=== PATIENT | female | born 1940 | race Caucasian/White ===

== ENCOUNTER 2020-04-27 17:40 | Inpatient (IN) ==
[2020-04-27] MEDS ORDERED: cefTRIAXone 1 GM VIAL IV ONE (17:44)
[2020-04-27] MEDS ORDERED: 0.9 % SODIUM CHLORIDE 1,000 ML IV ONE (17:44)
[2020-04-27 19:10] LABS: ABG Methemoglobin 0.3 % (0.4-1.5); Total Hemoglobin 11.2 gm/dL (12.0-15.0); VBG Base Excess 5.4 (-2.0-2.0); VBG HCO3 27.7 mmol/L (24.0-28.0); VBG Oxygen Saturation 89.7 % (40.0-70.0); VBG PCO2 32.5 mmHg (41.0-51.0); VBG PH 7.55 U (7.32-7.42); VBG PO2 91 mmHg (25-40); VBG Total CO2 28.7 mmol/L (25.0-29.0)
[2020-04-27 19:11] LABS: Basophils # (Auto) 0.05 K/mcL (0.00-0.30); Basophils % (Auto) 0.4 % (0.0-2.0); Eosinophils # (Auto) 0.42 K/mcL (0.00-0.70); Eosinophils % (Auto) 3.7 % (0.0-7.0); Granulocytes % (Auto) 68.3 % (38.0-78.0); Hematocrit 34.6 % (34.1-44.9); Hemoglobin 11.6 g/dL (11.2-15.7); Lymphocytes # (Auto) 2.16 K/mcL (1.50-4.80); Lymphocytes % (Auto) 19.3 % (15.5-49.0); Mean Cell Volume 90.6 fL (80.0-100.0); Mean Corpuscular HGB Conc 33.5 g/dL (31.0-36.0); Mean Platelet Volume 10.9 fL (7.4-10.4); Monocytes # (Auto) 0.93 K/mcL (0.10-0.90); Monocytes % (Auto) 8.3 % (1.0-12.0); Platelet Count 270 K/mcL (140-440); RBC 3.82 M/mcL (3.59-5.38); Red Cell Distribution Width 12.8 % (11.5-14.5); WBC 11.2 K/mcL (4.50-11.00)
[2020-04-27 19:50] LABS: ALT/SGPT 15 U/l (0-40); AST/SGOT 19 U/l (0-37); Albumin 3.8 gm/dL (3.2-5.2); Albumin/Globulin Ratio 1.5 (1.0-2.3); Alkaline Phosphatase 66 U/L (39-117); Bilirubin,Total 0.4 mg/dL (0.0-1.0); Calcium 8.5 mg/dl (8.6-10.4); Carbon Dioxide 24 mmol/L (22-30); Globulin 2.6 gm/dL (2.2-3.7); Glomerular Filtration Rate 36; Glucose 132 mg/dL (70-105)
[2020-04-27 19:54] LABS: Blood Urea Nitrogen 48 mg/dl (8-23); Chloride 92 mmol/L (96-108)
[2020-04-27] MEDS ORDERED: ONDANSETRON 4 MG/2 ML VIAL IV ONE (19:54)
[2020-04-27] MEDS ORDERED: POTASSIUM CHLORIDE 20 MEQ TABLET PO ONE (19:54)
[2020-04-27 20:00] LABS: Procalcitonin 0.09 ng/mL (<0.10)
--- NOTE | 2020-04-27 21:06 | Emergency Department Note ---
HPI General Chief complaint: Shortness of Breath/Dyspnea Stated complaint: shortness of breath Time Seen by Provider: 04/27/20 17:44 Source: patient Mode of arrival: ambulatory Limitations: no limitations History of Present Illness HPI Narrative: Narrative: 80-year-old patient presented with a history of symptoms consistent with upper respiratory infection that began 3 days ago. Associated symptoms include cough also reporting shortness of breath and fever. Specific risk factors that I considered in this patient's case were hypertension, diabetes, pre-existing cardiovascular disease, and pre-existing pulmonary disease-patient does have diabetes history of HI in the past. Patient also reports concern for fever dry cough. Symptoms are currently reported as mild to moderate in severity and intermittent in duration. Is exacerbated with coughing/not sleeping well. It is alleviated by rest. Patient has not been seen for this recently. Patient has had current immunizations. Patient denies any sore throat, neck pain, chest pain, abdominal pain, back pain, numbness or tingling in the extremities, skin rash, chills, vomiting, or diarrhea no other pain or complaints at this time. Patient reports they do not have sick contacts. Patient reports they have not been tested for COVID19. Related Data Home Medications Medication Instructions Recorded Confirmed acetaminophen 325 mg tablet 650 mg PO Q4H PRN tab 10/12/18 04/13/20 telmisartan 80 mg tablet 80 mg PO QDAY 02/21/20 04/13/20 memantine 10 mg tablet 10 mg PO QPM 04/15/20 doxazosin 1 mg PO QHS 04/27/20 04/27/20 Previous Rx's Medication Instructions Recorded Diabetic Foot Care #365 day 12/04/15 insulin syringe,safetyneedle 1 mL #500 each 01/23/18 30 gauge x /" nitroglycerin 0.4 mg sublingual 0.4 mg SUBLINGUAL Q5-15M PRN #30 05/14/18 tablet tab atorvastatin 80 mg tablet 80 mg PO QDAY #90 tab 06/24/19 polysaccharide iron complex 150 mg 150 mg PO .qod #20 cap 06/24/19 iron capsule carvedilol 12.5 mg tablet 12.5 mg PO BID #180 tab 07/31/19 insulin degludec 100 unit/mL (3 70 unit SUB-Q QDAY 90 Days #75 ml 08/19/19 mL) subcutaneous pen amlodipine 5 mg tablet 5 mg PO BID #60 tab 11/25/19 polyethylene glycol 3350 17 17 g PO QDAY PRN #510 g 11/25/19 gram/dose oral powder levothyroxine 125 mcg tablet 125 mcg PO QDAY #90 tab 12/11/19 furosemide 20 mg tablet 40 mg PO BID #180 tab 01/20/20 potassium chloride 20 mEq 20 meq PO BID #14 tab 03/09/20 tablet,extended release isosorbide mononitrate 120 mg 60 mg PO QDAY #45 tab 03/20/20 tablet,extended release 24 hr chlorthalidone 25 mg tablet 12.5 mg PO QDAY #30 tab 04/06/20 apixaban 2.5 mg tablet 2.5 mg PO BID #90 tab 04/13/20 fenofibrate 54 mg tablet 54 mg PO QDAY #90 tab 04/15/20 insulin aspart U-100 100 unit/mL See Rx Instructions SUB-Q TID #90 04/20/20 subcutaneous solution ml Allergies Allergy/AdvReac Type Severity Reaction Status Date / Time hydrocodone [HYDROCODONE] Allergy Intermediate VOMITING Verified 04/17/20 02:07 acetaminophen [From Vicodin] Allergy Unknown Unknown Verified 04/17/20 02:07 clemastine Allergy Unknown Unknown Verified 04/17/20 02:07 hydromorphone [From Dilaudid] Allergy Unknown Unknown Verified 04/17/20 02:07 phenylpropanolamine Allergy Unknown Unknown Verified 04/17/20 02:07 atorvastatin [From Lipitor] Allergy Unknown Verified 04/17/20 02:07 morphine [MORPHINE] AdvReac Severe VIOLENT Verified 04/17/20 02:07 VOMITING nitroglycerin [NITROGLYCERIN] AdvReac Intermediate VIOLENT Verified 04/17/20 02:07 HEADACHES carbamazepine [From TEGRETOL] AdvReac Mild NAUSEA/LIGH Verified 04/17/20 02:07 THEADED meperidine [From DEMEROL] AdvReac Mild NAUSEA/LIGH Verified 04/17/20 02:07 THEADED metformin [From GLUCOPHAGE] AdvReac Mild UPSET Verified 04/17/20 02:07 STOMACH nifedipine [From PROCARDIA] AdvReac Mild UNKNOWN Verified 04/17/20 02:07 ezetimibe [From VYTORIN] AdvReac Unknown UNKNOWN Verified 04/17/20 02:07 metoprolol [From TOPROL XL] AdvReac Unknown UNKNOWN Verified 04/17/20 02:07 simvastatin [From VYTORIN] AdvReac Unknown UNKNOWN Verified 04/17/20 02:07 Tamoxifen [TAMOXIFEN] AdvReac Unknown UNKNOWN Verified 04/17/20 02:07 ezetimibe Allergy Unknown Unknown Uncoded 04/13/20 10:44 hydromorphone Allergy Unknown Unknown Uncoded 04/13/20 10:44 meperidine Allergy Unknown Unknown Uncoded 04/13/20 10:44 nifedipine Allergy Unknown Unknown Uncoded 04/13/20 10:44 simvastatin Allergy Unknown Unknown Uncoded 04/13/20 10:44 Tavist-D Allergy Unknown Unknown Uncoded 04/13/20 10:44 Review of Systems ROS ROS Narrative: Narrative: All systems ED: reviewed and negative except as stated. 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/antiplatelets (Chronic) Chest pain in adult (Acute) LBBB (left bundle branch block) (Acute) Paroxysmal atrial fibrillation (Acute) Hypokalemia (Acute) Diabetes mellitus, type II (Chronic) Renal failure, chronic (Chronic) Coronary artery disease (Chronic) Ischemic heart disease, chronic (Chronic) Cardiomegaly (Chronic) Carotid artery stenosis (Chronic) Peripheral vascular disease (Chronic) Renal artery stenosis (Chronic) Peripheral neuropathy (Chronic) Depression (Chronic) Chronic constipation (Chronic) Encounter for long-term (current) use of high-risk medication (Chronic) Essential hypertension (Chronic) Secondary hyperparathyroidism of renal origin (Chronic) Dementia (Chronic) Mild cognitive impairment (Chronic) Poor short term memory (Chronic ~12/19/18) ESR raised (Chronic) Polyarthralgia (Chronic) Carotid bruit (Chronic ~03/06/19) Migraine (Chronic) Mixed hyperlipidemia (Chronic) Compression fracture (Chronic) Osteoporosis (Chronic) Constipation (Chronic) Primary osteoarthritis, right hand (Chronic) Urinary incontinence (Chronic) Colon polyps (Chronic) Toxic multinodular goiter w/o crisis (Chronic) Headache (Chronic) Hypothyroidism (Chronic) Low back pain (Chronic) Degenerative arthritis (Chronic) Chronic tophaceous gout (Chronic) Medical History (Updated 04/27/20 @ 21:06 by Higinio Fregoso MD) Abnormal Pap smear of vagina (Resolved) Hx of distant atypical pap; worked up to resolution including endometrial biopsy; Ultrasound in 2006 revealed simple ovarian cyst; abdominopelvic CT 10/2011 Anemia (Resolved) Cardiomegaly (Chronic) 09/17/14 Dr Santana Carotid artery stenosis (Chronic) Carotid bruit (Chronic ~03/06/19) Cellulitis (Resolved) Cervicalgia (Resolved) Chest pain (Inactive) Recurrent; recathed with stable grafts in 2001; stabel cardiolithe in 2003; recathed 02/2005, which was stable. She had a cardiolite plus recath and echo 05/2008, which showed some mild progression of her disease and she was relegated to medical management. Presented with recurrent chest pains 06/2012, recathed and her grafts were stable at that point. Follow up visits with Dr Martin. Chest pain (Resolved) Chronic constipation (Chronic) Chronic tophaceous gout (Chronic) Colon polyps (Chronic) Colonoscopy with past hx of adenomatous polyps, updated in 12/2011 showing hyperplastic polyp. On [address] Reed. Compression fracture (Chronic) L3 MRI 06/2016--vertebro[plasty Constipation (Chronic) Coronary artery disease (Chronic) HX iwth coronary bypass grafting, posterior descending and circumflex, inframammary implant to the left anterior descending originally in 1995. Had transient atrial fibrillation postoperatively, which resolved Degenerative arthritis (Chronic) Dementia (Chronic) Depression (Chronic) Diabetes mellitus, type II (Chronic) Insulin dependent. Previously had been in oragl agent regimen combined with Lantus; sugars were poorly controlled and since about 2010 she has been on a full regimen of NPH. Encounter for long-term (current) use of high-risk medication (Chronic) ESR raised (Chronic) Essential hypertension (Chronic) Headache (Chronic) Chronic perobital/occipital; extensive workup, previous trial of Topamax; last imaging 10/2011 essentially normal. Hypoglycemia (Resolved) Hypothyroidism (Chronic) On replacements; no current goiter or nodules. 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 08/20 compression fx with negatie biopsy; multi-level vertebroplasty through pain clinic 06/19/2011 Mammographic microcalcification (Inactive) breast biopsy 2002 with short sequence of Tamoxifen for atypia aborted because of headache; sequential mammograms sable. Memory loss (Inactive) (10/27/2014 Dr Martin) Due to medication overdose Migraine (Chronic) Mild cognitive impairment (Chronic) Mixed hyperlipidemia (Chronic) Myocardial infarction acute (Resolved) 10/27/2014 Dr Martin Myoclonus (Inactive) Hx of nocturnal; had a consult with Dr Renzo Ortiz and a normal sleep study in 2001. Neuralgia (Inactive) past hx of facial with current headaches. Osteopenia (Inactive) by bone density; updated 08/2011 with T-score at spine -0.6 and hip -1.5. Stable Vitamin D level in 2008 Osteoporosis (Chronic) dexa 07/2016 Ovarian cyst (Inactive) Pelvic US 08/2011 showing benign left 2 cm ovarian cyst; abdominopelvic CT essentially normal 10/2011 Pain in right finger(s) (Resolved) Peripheral neuropathy (Chronic) Peripheral vascular disease (Chronic) Polyarthralgia (Chronic) Poor short term memory (Chronic ~12/19/18) Primary osteoarthritis, right hand (Chronic) Renal artery stenosis (Chronic) Renal failure, chronic (Chronic) MILD Secondary hyperparathyroidism of renal origin (Chronic) Toxic multinodular goiter w/o crisis (Chronic) 1963*S/P thyroidectomy in distant past Urinary incontinence (Chronic) Had a Stamey procedure in 1987; little benefit. She does not wish to work up further at this point Surgical History History of bladder surgery (Inactive) 1987*STAMEY technique History of bone marrow biopsy (Inactive) Negative History of bone marrow biopsy (Chronic) Negative History of breast biopsy (Inactive) 203 History of breast biopsy (Chronic ~10/09/02) History of colonoscopy (Inactive) 2000--Adenomatous polyp. 07/2006--Adenomatous polyp. 12/21/2011-2 small hyperplastic polyps. 5 year sequencing. History of colonoscopy (Chronic 12/21/11) History of coronary artery stent placement (Chronic 11/06/17) Drug-eluting coronary stent; Coronary PTCA single artery History of esophagogastroduodenoscopy (Inactive) 1999 NORMAL History of esophagogastroduodenoscopy (EGD) (Chronic ~10/09/99) History of heart surgery (Chronic 10/17/17) Coronary arteriography with saphenous vein graft History of left heart catheterization (Inactive) History of lumbar discectomy (Chronic ~10/09/96) 1987 History of shoulder surgery (Chronic) Right fracture and repair History of thyroidectomy (Chronic) partial History of total knee arthroplasty (Chronic) 02/2011 Right History of vertebroplasty (Chronic) 2010 X2 Hx of CABG (Chronic) 1995 x5 Family History Sister Malignant neoplasm of breast Family history of coronary artery disease 3 years younger Peripheral Vascular Disease Social History Smoking Status: Never smoker Alcohol Intake Frequency: holiday/special occasion only Substance Use: does not use Exam Narrative Narrative: Narrative: Patient is noted to be hypoxic on presentation sats in the 80s given 2 L of oxygen by nasal cannula with improvement into the high to mid 90s General: Alert, interactive, appropriate Head: Atraumatic, normocephalic Eyes: Extraocular movements intact, sclera anicteric, no conjunctival injection Ears: Pinnae normal, no discharge Mouth: Oral mucosa moist, no acute swelling or evidence of infection Nares: No nasal discharge, patent bilaterally Neck: Trachea midline, full range of motion Chest: Symmetrical chest wall rise, breathing normally; nonlabored respirations Cardiovascular: Patient with excellent perfusion to the extremities; without tachycardia/bradycardia Skin: Patient without area of erythema, patient is without rash, no ascending ly mphangitis or lymphadenopathy Extremities: Full range of motion joints, no obvious deformities Neuro: Alert, oriented x3, cranial nerves II through XII grossly intact, patient without lateralizing findings such as weakness, or abnormal reflexes Psychiatric: Normal affect, normal mood General Limitations: no limitations Course Vital Signs Vital signs: Vital Signs Temperature 100 F H 04/27/20 17:41 Pulse Rate 76 04/27/20 17:41 Respiratory Rate 20 04/27/20 17:41 Blood Pressure 148/77 04/27/20 17:41 Pulse Oximetry (%) 91 04/27/20 17:41 Temperature 100 F H 04/27/20 17:41 Pulse Rate 65 04/27/20 20:45 Respiratory Rate 20 04/27/20 17:41 Blood Pressure 141/49 04/27/20 20:32 Pulse Oximetry (%) 97 04/27/20 20:45 MDM MDM Narrative Medical decision making narrative: Narrative: This patient is presenting with symptoms and findings consistent with pneumonia and possibility of COVID. Patient currently requiring 2 L oxygen by nasal cannula to maintain saturations. They are not immunocompromised. They have no signs of meningitis on exam. The differential diagnosis also included COVID19. Patient with abnormal chest x-ray possible left lower lobe infiltrate. Given oxygen requirement as well as elevated white blood cell count and concerning history will test for COVID admit for pneumonia. Patient does have elevated lactic acid as well as BUN and creatinine and white blood cell count. Discussed case with Dr. Silverio and the consensus medical opinion is to omit the patient. Lab Data Result diagrams: 04/27/20 18:08 04/27/20 18:08 Labs: Lab Results 04/27/20 04/27/20 04/27/20 Range/Units 18:05 18:08 18:08 WBC 11.2 H (4.50-11.00) K/mcL RBC 3.82 (3.59-5.38) M/mcL Hgb 11.6 (11.2-15.7) g/dL Hct 34.6 (34.1-44.9) % MCV 90.6 (80.0-100.0) fL MCH 30.4 (26.0-34.0) pg MCHC 33.5 (31.0-36.0) g/dL RDW 12.8 (11.5-14.5) % Plt Count 270 (140-440) K/mcL MPV 10.9 H (7.4-10.4) fL Gran % 68.3 (38.0-78.0) % Lymph % (Auto) 19.3 (15.5-49.0) % Tyrrell % (Auto) 8.3 (1.0-12.0) % Eos % (Auto) 3.7 (0.0-7.0) % Baso % (Auto) 0.4 (0.0-2.0) % Gran # 7.65 (1.80-8.00) K/mcL Lymph # (Auto) 2.16 (1.50-4.80) K/mcL Tyrrell # (Auto) 0.93 H (0.10-0.90) K/mcL Eos # (Auto) 0.42 (0.00-0.70) K/mcL Baso # (Auto) 0.05 (0.00-0.30) K/mcL Band Neutrophils % Not Reportable ABG Methemoglobin (0.4-1.5) % VBG pH (7.32-7.42) U VBG pCO2 (41.0-51.0) mmHg VBG pO2 (25-40) mmHg VBG HCO3 (24.0-28.0) mmol/L VBG Total CO2 (25.0-29.0) mmol/L VBG O2 Saturation (40.0-70.0) % VBG Base Excess (-2.0-2.0) VBG Lactic Acid (0.5-2.0) mmol/L Carboxyhemoglobin (0.0-1.5) % THgb Total Hemoglobin (12.0-15.0) gm/dL O2 Delivery Level Sodium 136 (133-145) mmol/L Potassium 2.3 L* (3.3-5.1) mmol/L Chloride 92 L (96-108) mmol/L Carbon Dioxide 24 (22-30) mmol/L Anion Gap 20.0 H (8-16) BUN 48 H (8-23) mg/dl Creatinine 1.4 H (0.6-1.1) mg/dl GFR Calculation 36 Glucose 132 H (70-105) mg/dL Calcium 8.5 L (8.6-10.4) mg/dl Total Bilirubin 0.4 (0.0-1.0) mg/dL AST 19 (0-37) U/l ALT 15 (0-40) U/l Alkaline Phosphatase 66 (39-117) U/L Total Protein 6.4 (5.9-8.4) gm/dL Albumin 3.8 (3.2-5.2) gm/dL Globulin 2.6 (2.2-3.7) gm/dL Albumin/Globulin Ratio 1.5 (1.0-2.3) Procalcitonin (<0.10) ng/mL 04/27/20 04/27/20 04/27/20 Range/Units 18:08 18:08 18:08 WBC (4.50-11.00) K/mcL RBC (3.59-5.38) M/mcL Hgb (11.2-15.7) g/dL Hct (34.1-44.9) % MCV (80.0-100.0) fL MCH (26.0-34.0) pg MCHC (31.0-36.0) g/dL RDW (11.5-14.5) % Plt Count (140-440) K/mcL MPV (7.4-10.4) fL Gran % (38.0-78.0) % Lymph % (Auto) (15.5-49.0) % Tyrrell % (Auto) (1.0-12.0) % Eos % (Auto) (0.0-7.0) % Baso % (Auto) (0.0-2.0) % Gran # (1.80-8.00) K/mcL Lymph # (Auto) (1.50-4.80) K/mcL Tyrrell # (Auto) (0.10-0.90) K/mcL Eos # (Auto) (0.00-0.70) K/mcL Baso # (Auto) (0.00-0.30) K/mcL Band Neutrophils % ABG Methemoglobin 0.3 L (0.4-1.5) % VBG pH 7.55 H (7.32-7.42) U VBG pCO2 32.5 L (41.0-51.0) mmHg VBG pO2 91 H (25-40) mmHg VBG HCO3 27.7 (24.0-28.0) mmol/L VBG Total CO2 28.7 (25.0-29.0) mmol/L VBG O2 Saturation 89.7 H (40.0-70.0) % VBG Base Excess 5.4 H (-2.0-2.0) VBG Lactic Acid 2.3 H (0.5-2.0) mmol/L Carboxyhemoglobin 7.5 H (0.0-1.5) % THgb Total Hemoglobin 11.2 L (12.0-15.0) gm/dL O2 Delivery Level Not Reportable Sodium (133-145) mmol/L Potassium (3.3-5.1) mmol/L Chloride (96-108) mmol/L Carbon Dioxide (22-30) mmol/L Anion Gap (8-16) BUN (8-23) mg/dl Creatinine (0.6-1.1) mg/dl GFR Calculation Glucose (70-105) mg/dL Calcium (8.6-10.4) mg/dl Total Bilirubin (0.0-1.0) mg/dL AST (0-37) U/l ALT (0-40) U/l Alkaline Phosphatase (39-117) U/L Total Protein (5.9-8.4) gm/dL Albumin (3.2-5.2) gm/dL Globulin (2.2-3.7) gm/dL Albumin/Globulin Ratio (1.0-2.3) Procalcitonin 0.09 (<0.10) ng/mL Discharge Plan Patient/Caregiver Discharge Instructions Pt seen by FISH FRYER/PA only: No Clinical Impression: Acute respiratory failure with hypoxia Pneumonia Qualifiers: Pneumonia type: due to unspecified organism Laterality: left Lung location: lower lobe of lung Qualified Code(s): J18.9 - Pneumonia, unspecified organism Instructions: Community Acquired Pneumonia (ED) Patient Disposition: Xfer As Inpt ([facility]) Follow up with: Min Diaz DO [Primary Care Provider] - Prescriptions: No Action (DME) insulin syringe,safetyneedle 1 mL 30 gauge x 5/16" syringe See Dose Instructions .ROUTE .MEDSUPPLY Qty: 500 RF: 3 atorvastatin 80 mg tablet 80 mg PO QDAY Qty: 90 RF: 3 polysaccharide iron complex 150 mg iron capsule 150 mg PO .qod Qty: 20 RF: 3 carvedilol 12.5 mg tablet 12.5 mg PO BID Qty: 180 RF: 3 Tresiba FlexTouch U-100 100 unit/mL (3 mL) insulin pen 70 unit SUB-Q QDAY 90 Days Qty: 75 RF: 3 amlodipine 5 mg tablet 5 mg PO BID Qty: 60 RF: 11 levothyroxine [Synthroid] 125 mcg tablet 125 mcg PO QDAY Qty: 90 RF: 1 furosemide 20 mg tablet 40 mg PO BID Qty: 180 RF: 3 potassium chloride 20 mEq tablet extended release 20 meq PO BID Qty: 14 RF: 0 isosorbide mononitrate 120 mg tablet extended release 24 hr 60 mg PO QDAY Qty: 45 RF: 1 chlorthalidone 25 mg tablet 12.5 mg PO QDAY Qty: 30 RF: 3 fenofibrate 54 mg tablet 54 mg PO QDAY Qty: 90 RF: 1 memantine 10 mg tablet 10 mg PO QPM RF: 0 insulin aspart U-100 [Novolog U-100 Insulin aspart] 100 unit/mL solution See Rx Instructions SUB-Q TID Qty: 90 RF: 4 nitroglycerin 0.4 mg tablet, sublingual 0.4 mg SUBLINGUAL Q5-15M PRN (Reason: chest pain) Qty: 30 RF: 0 Eliquis 2.5 mg tablet 2.5 mg PO BID Qty: 90 RF: 3 polyethylene glycol 3350 [Miralax] 17 gram/dose powder 17 g PO QDAY PRN (Reason: constipation) Qty: 510 RF: 3 (DME) Diabetic Foot Care Qty: 365 RF: 0 acetaminophen 325 mg tablet 650 mg PO Q4H PRN (Reason: Pain) RF: 0 telmisartan 80 mg tablet 80 mg PO QDAY RF: 0 doxazosin 1 mg Tablet 1 mg PO QHS RF: 0
--- NOTE | 2020-04-27 21:24 | Internal Med History&Physical ---
HPI History of Present Illness Patient information: Note initiated : 04/27/20 at 9:14 pm Service Date, if different from initiated Date: [] Patient: Kristin Palmer a 80 y/o F admitted on for shortness of breath. Chief Complaint: [] History of present illness: Ms. Palmer is a 80 year old F Who presents the ED with shortness of breath and dry cough that started this morning. She does not wear oxygen at home and her oxygen was 86% in triage on room air. Denies nausea vomiting fevers or chills or body aches. History is obtained from patient as well as patient's as she has poor memory. Sounds like she has had shortness of breath for at least 6 months. However in the past day or so it is been worse and she developed a dry cough. She denies any recent travel or sick contacts. She thinks she is gained 4 pounds past week or so. She has chronic lower extremity edema and does not feel like it is changed. Follows with director corporate communications for coronary artery disease last saw her director corporate communications this spring with no changes in medication. She has a chronic left bundle branch block. Follows with a facsimile machine operator. She denies orthopnea or dysphagia. Nothing makes her coughing and shortness of breath worse or better. In the ED she was found to have a borderline white blood cell count, procalcitonin was okay and lactate was mildly elevated. Potassium was low. Chest x-ray with infiltrate right side with some cephalization. Review of Systems: Pertinent positives as above plus headache. Denies fever/chills/nausea/vomiting/chest or abdominal pain/diarrhea. Remaining 10 point review of system reviewed negative. [facility] Medical History (Updated 04/27/20 @ 21:06 by Higinio Fregoso MD) Abnormal Pap smear of vagina (Resolved) Hx of distant atypical pap; worked up to resolution including endometrial biopsy; Ultrasound in 2006 revealed simple ovarian cyst; abdominopelvic CT 10/2011 Anemia (Resolved) Cardiomegaly (Chronic) 09/17/14 Dr Santana Carotid artery stenosis (Chronic) Carotid bruit (Chronic ~03/06/19) Cellulitis (Resolved) Cervicalgia (Resolved) Chest pain (Inactive) Recurrent; recathed with stable grafts in 2001; stabel cardiolithe in 2003; recathed 02/2005, which was stable. She had a cardiolite plus recath and echo 05/2008, which showed some mild progression of her disease and she was relegated to medical management. Presented with recurrent chest pains 06/2012, recathed and her grafts were stable at that point. Follow up visits with Dr Martin. Chest pain (Resolved) Chronic constipation (Chronic) Chronic tophaceous gout (Chronic) Colon polyps (Chronic) Colonoscopy with past hx of adenomatous polyps, updated in 12/2011 showing hyperplastic polyp. On [address] Reed. Compression fracture (Chronic) L3 MRI 06/2016--vertebro[plasty Constipation (Chronic) Coronary artery disease (Chronic) HX iwth coronary bypass grafting, posterior descending and circumflex, inframammary implant to the left anterior descending originally in 1995. Had transient atrial fibrillation postoperatively, which resolved Degenerative arthritis (Chronic) Dementia (Chronic) Depression (Chronic) Diabetes mellitus, type II (Chronic) Insulin dependent. Previously had been in oragl agent regimen combined with Lantus; sugars were poorly controlled and since about 2010 she has been on a full regimen of NPH. Encounter for long-term (current) use of high-risk medication (Chronic) ESR raised (Chronic) Essential hypertension (Chronic) Headache (Chronic) Chronic perobital/occipital; extensive workup, previous trial of Topamax; last imaging 10/2011 essentially normal. Hypoglycemia (Resolved) Hypothyroidism (Chronic) On replacements; no current goiter or nodules. 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 Office visit with Dr Martin 07/2012, clinically stable on medical management skilled nursing (current) use of antithrombotics/antiplatelets (Chronic) Clopidogrel Low back pain (Chronic) past hx of lumbar surgery with increasing low back pain. 08/20 compression fx with negatie biopsy; multi-level vertebroplasty through pain clinic 06/19/2011 Mammographic microcalcification (Inactive) breast biopsy 2002 with short sequence of Tamoxifen for atypia aborted because of headache; sequential mammograms sable. Memory loss (Inactive) (10/27/2014 Dr Martin) Due to medication overdose Migraine (Chronic) Mild cognitive impairment (Chronic) Mixed hyperlipidemia (Chronic) Myocardial infarction acute (Resolved) 10/27/2014 Dr Martin Myoclonus (Inactive) Hx of nocturnal; had a consult with Dr Renzo Ortiz and a normal sleep study in 2001. Neuralgia (Inactive) past hx of facial with current headaches. Osteopenia (Inactive) by bone density; updated 08/2011 with T-score at spine -0.6 and hip -1.5. Stable Vitamin D level in 2008 Osteoporosis (Chronic) dexa 07/2016 Ovarian cyst (Inactive) Pelvic US 08/2011 showing benign left 2 cm ovarian cyst; abdominopelvic CT essentially normal 10/2011 Pain in right finger(s) (Resolved) Peripheral neuropathy (Chronic) Peripheral vascular disease (Chronic) Polyarthralgia (Chronic) Poor short term memory (Chronic ~12/19/18) Primary osteoarthritis, right hand (Chronic) Renal artery stenosis (Chronic) Renal failure, chronic (Chronic) MILD Secondary hyperparathyroidism of renal origin (Chronic) Toxic multinodular goiter w/o crisis (Chronic) 1963*S/P thyroidectomy in distant past Urinary incontinence (Chronic) Had a Stamey procedure in 1987; little benefit. She does not wish to work up further at this point Surgical History History of bladder surgery (Inactive) 1987*STAMEY technique History of bone marrow biopsy (Inactive) Negative History of bone marrow biopsy (Chronic) Negative History of breast biopsy (Inactive) 203 History of breast biopsy (Chronic ~10/09/02) History of colonoscopy (Inactive) 2000--Adenomatous polyp. 07/2006--Adenomatous polyp. 12/21/2011-2 small hyperplastic polyps. 5 year sequencing. History of colonoscopy (Chronic 12/21/11) History of coronary artery stent placement (Chronic 11/06/17) Drug-eluting coronary stent; Coronary PTCA single artery History of esophagogastroduodenoscopy (Inactive) 1999 NORMAL History of esophagogastroduodenoscopy (EGD) (Chronic ~10/09/99) History of heart surgery (Chronic 10/17/17) Coronary arteriography with saphenous vein graft History of left heart catheterization (Inactive) History of lumbar discectomy (Chronic ~10/09/96) 1987 History of shoulder surgery (Chronic) Right fracture and repair History of thyroidectomy (Chronic) partial History of total knee arthroplasty (Chronic) 02/2011 Right History of vertebroplasty (Chronic) 2010 X2 Hx of CABG (Chronic) 1995 x5 Family History Sister Malignant neoplasm of breast Family history of coronary artery disease 3 years younger Peripheral Vascular Disease Social History household members: alone housing: house marital status: occupational status: retired smoking status: Never smoker alcohol intake frequency: holiday/special occasion only substance use type: does not use MEDS/ALLERGIES Home Medications and Allergies Home Medications Medication Instructions Recorded Confirmed Type Diabetic Foot Care #365 day 12/04/15 04/27/20 Rx insulin syringe,safetyneedle 1 mL #500 each 01/23/18 04/27/20 Rx 30 gauge x 02/21" nitroglycerin 0.4 mg sublingual 0.4 mg SUBLINGUAL Q5-15M PRN #30 05/14/18 04/27/20 Rx tablet tab acetaminophen 325 mg tablet 650 mg PO Q4H PRN tab 10/12/18 04/27/20 History atorvastatin 80 mg tablet 80 mg PO QDAY #90 tab 06/24/19 04/27/20 Rx polysaccharide iron complex 150 mg 150 mg PO .qod #20 cap 06/24/19 04/27/20 Rx iron capsule carvedilol 12.5 mg tablet 12.5 mg PO BID #180 tab 07/31/19 04/27/20 Rx insulin degludec 100 unit/mL (3 70 unit SUB-Q QDAY 90 Days #75 ml 08/19/19 04/27/20 Rx mL) subcutaneous pen amlodipine 5 mg tablet 5 mg PO BID #60 tab 11/25/19 04/27/20 Rx polyethylene glycol 3350 17 17 g PO QDAY PRN #510 g 11/25/19 04/27/20 Rx gram/dose oral powder levothyroxine 125 mcg tablet 125 mcg PO QDAY #90 tab 12/11/19 04/27/20 Rx furosemide 20 mg tablet 40 mg PO BID #180 tab 01/20/20 04/27/20 Rx telmisartan 80 mg tablet 80 mg PO QDAY 02/21/20 04/27/20 History potassium chloride 20 mEq 20 meq PO BID #14 tab 03/09/20 04/27/20 Rx tablet,extended release isosorbide mononitrate 120 mg 60 mg PO QDAY #45 tab 03/20/20 04/27/20 Rx tablet,extended release 24 hr chlorthalidone 25 mg tablet 12.5 mg PO QDAY #30 tab 04/06/20 04/27/20 Rx apixaban 2.5 mg tablet 2.5 mg PO BID #90 tab 04/13/20 04/27/20 Rx fenofibrate 54 mg tablet 54 mg PO QDAY #90 tab 04/15/20 04/27/20 Rx memantine 10 mg tablet 10 mg PO QPM 04/15/20 04/27/20 History insulin aspart U-100 100 unit/mL See Rx Instructions SUB-Q TID #90 04/20/20 04/27/20 Rx subcutaneous solution ml doxazosin 1 mg PO QHS 04/27/20 04/27/20 History Allergies Allergy/AdvReac Type Severity Reaction Status Date / Time clemastine Allergy Unknown Unknown Verified 04/17/20 02:07 phenylpropanolamine Allergy Unknown Unknown Verified 04/17/20 02:07 atorvastatin [From Lipitor] Allergy Unknown Verified 04/17/20 02:07 acetaminophen [From Vicodin] AdvReac Mild Unknown Verified 04/28/20 06:06 carbamazepine [From TEGRETOL] AdvReac Mild NAUSEA/LIGH Verified 04/17/20 02:07 THEADED hydrocodone [HYDROCODONE] AdvReac Mild VOMITING Verified 04/28/20 06:06 hydromorphone [From Dilaudid] AdvReac Mild Unknown Verified 04/28/20 06:06 meperidine [From DEMEROL] AdvReac Mild NAUSEA/LIGH Verified 04/17/20 02:07 THEADED metformin [From GLUCOPHAGE] AdvReac Mild UPSET Verified 04/17/20 02:07 STOMACH morphine [MORPHINE] AdvReac Mild VIOLENT Verified 04/28/20 06:06 VOMITING nifedipine [From PROCARDIA] AdvReac Mild UNKNOWN Verified 04/17/20 02:07 nitroglycerin [NITROGLYCERIN] AdvReac Mild VIOLENT Verified 04/28/20 06:06 HEADACHES ezetimibe [From VYTORIN] AdvReac Unknown UNKNOWN Verified 04/17/20 02:07 metoprolol [From TOPROL XL] AdvReac Unknown UNKNOWN Verified 04/17/20 02:07 simvastatin [From VYTORIN] AdvReac Unknown UNKNOWN Verified 04/17/20 02:07 Tamoxifen [TAMOXIFEN] AdvReac Unknown UNKNOWN Verified 04/17/20 02:07 ezetimibe Allergy Unknown Unknown Uncoded 04/13/20 10:44 hydromorphone Allergy Unknown Unknown Uncoded 04/13/20 10:44 meperidine Allergy Unknown Unknown Uncoded 04/13/20 10:44 nifedipine Allergy Unknown Unknown Uncoded 04/13/20 10:44 simvastatin Allergy Unknown Unknown Uncoded 04/13/20 10:44 Tavist-D Allergy Unknown Unknown Uncoded 04/13/20 10:44 EXAM Constitutional Vitals: Temp Pulse Resp BP Pulse Ox 100 F H 65 20 141/49 97 04/27/20 17:41 04/27/20 20:45 04/27/20 17:41 04/27/20 20:32 04/27/20 20:45 Exam: General: Alert, Awake, No acute Distress Eyes/N/T: EOMI, PERRL, Head/Neck: neck supple, normocephalic atraumatic, JVD/HJR CV: RRR, 2/6 SM, normal s1/s2 Pulm: right base rales, no wheezing Abd: soft, nontender, +BS x4 Ext: no clubbing/cyanosis. b/l LE 2+ edema Neuro: Alert, no focal deficits, moves all extremities, CN 2-12 grossly intact, symmetrical strength b/l upper/lower, sensations intact b/l upper/lower Skin: warm/dry DATA Data Completed and Pending Labs on day of discharge: Labs from last 24 hours 04/27/20 04/27/20 04/27/20 20:48 18:08 18:08 WBC RBC Hgb Hct MCV MCH MCHC RDW Plt Count MPV Gran % Lymph % (Auto) Jennings % (Auto) Eos % (Auto) Baso % (Auto) Gran # Lymph # (Auto) [place] # (Auto) Eos # (Auto) Baso # (Auto) Total Counted Band Neutrophils % Platelet Estimate RBC Morphology ABG Methemoglobin 0.3 L VBG pH 7.55 H VBG pCO2 32.5 L VBG pO2 91 H VBG HCO3 27.7 VBG Total CO2 28.7 VBG O2 Saturation 89.7 H VBG Base Excess 5.4 H VBG Lactic Acid Pending Carboxyhemoglobin 7.5 H Total Hemoglobin 11.2 L O2 Delivery Level Not Reportable Sodium Potassium Chloride Carbon Dioxide Anion Gap BUN Creatinine GFR Calculation Glucose Calcium Total Bilirubin AST ALT Alkaline Phosphatase C-Reactive Protein NT-Pro-B Natriuret Pep Total Protein Albumin Globulin Albumin/Globulin Ratio Procalcitonin 0.09 COVID-19 PCR Pending 04/27/20 04/27/20 04/27/20 18:08 18:08 18:08 WBC 11.2 H RBC 3.82 Hgb 11.6 Hct 34.6 MCV 90.6 MCH 30.4 MCHC 33.5 RDW 12.8 Plt Count 270 MPV 10.9 H Gran % 68.3 Lymph % (Auto) 19.3 Jennings % (Auto) 8.3 Eos % (Auto) 3.7 Baso % (Auto) 0.4 Gran # 7.65 Lymph # (Auto) 2.16 Jennings # (Auto) 0.93 H Eos # (Auto) 0.42 Baso # (Auto) 0.05 Total Counted Band Neutrophils % Platelet Estimate RBC Morphology ABG Methemoglobin VBG pH VBG pCO2 VBG pO2 VBG HCO3 VBG Total CO2 VBG O2 Saturation VBG Base Excess VBG Lactic Acid 2.3 H Carboxyhemoglobin Total Hemoglobin O2 Delivery Level Sodium 136 Potassium 2.3 L* Chloride 92 L Carbon Dioxide 24 Anion Gap 20.0 H BUN 48 H Creatinine 1.4 H GFR Calculation 36 Glucose 132 H Calcium 8.5 L Total Bilirubin 0.4 AST 19 ALT 15 Alkaline Phosphatase 66 C-Reactive Protein NT-Pro-B Natriuret Pep Total Protein 6.4 Albumin 3.8 Globulin 2.6 Albumin/Globulin Ratio 1.5 Procalcitonin COVID-19 PCR 04/27/20 04/27/20 18:05 18:05 WBC RBC Hgb Hct MCV MCH MCHC RDW Plt Count MPV Gran % Lymph % (Auto) Jennings % (Auto) Eos % (Auto) Baso % (Auto) Gran # Lymph # (Auto) Jennings # (Auto) Eos # (Auto) Baso # (Auto) Total Counted Pending Band Neutrophils % Not Reportable Platelet Estimate Pending RBC Morphology Pending ABG Methemoglobin VBG pH VBG pCO2 VBG pO2 VBG HCO3 VBG Total CO2 VBG O2 Saturation VBG Base Excess VBG Lactic Acid Carboxyhemoglobin Total Hemoglobin O2 Delivery Level Sodium Potassium Chloride Carbon Dioxide Anion Gap BUN Creatinine GFR Calculation Glucose Calcium Total Bilirubin AST ALT Alkaline Phosphatase C-Reactive Protein Pending NT-Pro-B Natriuret Pep Pending Total Protein Albumin Globulin Albumin/Globulin Ratio Procalcitonin COVID-19 PCR A/P Narrative A/P Narrative: A: *Acute hypoxic respiratory failure: 2/2 likely viral pna *PNA vs ?cardiac *Hypokalemia: *COPD(not on home O2): *DM: *CAD w/cabg&stents: *Right ventricular systolic dysfunction: *?PAF *HTN: *CKD stage III: *Anemia, chronic: *Hypothyroidism: *Chronic pain: *Dementia: P: -supp O2, wean as able -f/u CXR -IS -covid/rvp pending -check bnp -potassium replace -cont BB/CCB/ARB/imdur/statin -cont lasix, hold thiazide for now -basal and ssi - -pt/ot -ppx: eliquis DNR Time Spent With Patient Time: Total time spent is greater than 50% in coordination of care (as documented) at patient's floor/unit and/or counseling patient:
[2020-04-27 22:10] LABS: Eosinophils % (Manual) 7 % (0-7); Lymphocytes % 16 % (15-49); Monocytes % (Manual) 3 % (1-12); Platelet Estimate NORMAL (NORMAL); Polychromasia 1+ (NONE SEEN); RBC Morphology ABNORM (NORMAL); Reactive Lymphocytes 1 % (0-2); Segmented Neutrophils % 73 % (38-78)
[2020-04-27] MEDS ORDERED: ONDANSETRON 4 MG/2 ML VIAL IV PRN (23:15)
[2020-04-27] MEDS ORDERED: SENNOSIDES 1 TABLET PO PRN (23:15)
[2020-04-27] MEDS ORDERED: POLYETHYLENE GLYCOL 3350 17 GM PACKET PO PRN (23:15)
[2020-04-27] MEDS ORDERED: NON FORMULARY MEDICATION 1 DOSE MISCELL (Polyethylene Glycol 3350 [Miralax] 17 G) PO PRN (23:15)
[2020-04-27] MEDS ORDERED: METOPROLOL TARTRATE 5 MG/5 ML VIAL IV PRN (23:15)
[2020-04-27] MEDS ORDERED: MAGNESIUM SULFATE 2 GM/50 ML BAG IV PRN (23:15)
[2020-04-27] MEDS ORDERED: POTASSIUM CHLORIDE 40 MEQ in DEXTROSE 5% IN WATER 500 ML IV PRN (23:15)
[2020-04-27] MEDS ORDERED: DEXTROSE 50% 50 ML VIAL IV PRN (23:15)
[2020-04-27] MEDS ORDERED: POTASSIUM CHLORIDE 20 MEQ TABLET PO PRN ×2 (23:15)
[2020-04-27] MEDS ORDERED: POTASSIUM CHLORIDE 40 MEQ in DEXTROSE 5% IN WATER 500 ML IV ONE (23:15)
[2020-04-27] MEDS ORDERED: IPRATROPIUM/ALBUTEROL 3 ML AMPUL.NEB NEB PRN (23:15)
[2020-04-27] MEDS ORDERED: DEXTROSE 31 GM ORAL.SUSP PO PRN (23:15)
[2020-04-27] MEDS ORDERED: IPRATROPIUM/ALBUTEROL 3 ML AMPUL.NEB NEB ONE (23:15)
[2020-04-27] MEDS: 0.9 % SODIUM CHLORIDE 10 ML SYRINGE IV SCH (23:32)
[2020-04-27] MEDS ORDERED: POTASSIUM CHLORIDE 20 MEQ/10 ML VIAL IV ONE (23:53)
[2020-04-27] MEDS: cefTRIAXone 2 GM in DEXTROSE 5% IN WATER 50 ML IV SCH (23:57)
[2020-04-27] MEDS ORDERED: cefTRIAXone 1 GM VIAL ONE (23:58)
[2020-04-27] MEDS: AZITHROMYCIN 500 MG in DEXTROSE 5% IN WATER 250 ML IV SCH (23:58)
[2020-04-27] MEDS: cefTRIAXone 1 GM VIAL IV ONE ×2 (23:58→23:59)
[2020-04-28] MEDS ORDERED: IPRATROPIUM/ALBUTEROL 3 ML AMPUL.NEB NEB ONE (04:19)
[2020-04-28 05:46] LABS: Appearance,Urine CLEAR; Bacteria,Urine 0 /hpf (0); Bilirubin,Urine NEG (NEG); Color,Urine YELLOW; Culture Indicated,Urine YES; Glucose,Urine (UA) NEGATIVE (NEG); Ketones,Urine NEG (NEG); Leukocyte Esterase,Urine 500 /uL (NEG); Nitrate,Urine NEG (NEG); Protein,Urine NEG (NEG); Specific Gravity,Urine 1.012 (1.000-1.035); Urine Blood NEG mg/dL (<0.03); Urine RBC 2 /hpf (0-1); Urine Squamous Epithelial Cell 2 /hpf (0-4); Urine Transitional Epi Cells 2 /hpf (0-2); Urine WBC 98 /hpf (0-4); Urobilinogen,Urine NEG (NEG)
[2020-04-28] MEDS: 0.9 % SODIUM CHLORIDE 10 ML SYRINGE IV SCH ×3 (05:49→21:06)
[2020-04-28] MEDS ORDERED: ACETAMINOPHEN 325 MG TABLET PO PRN (06:11)
[2020-04-28] MEDS ORDERED: NITROGLYCERIN 0.4 MG TAB.SUBL SL PRN (06:16)
[2020-04-28 06:41] LABS: Basophils # (Auto) 0.05 K/mcL (0.00-0.30); Basophils % (Auto) 0.4 % (0.0-2.0); Eosinophils # (Auto) 0.39 K/mcL (0.00-0.70); Eosinophils % (Auto) 3.1 % (0.0-7.0); Granulocytes % (Auto) 76.2 % (38.0-78.0); Hematocrit 34.3 % (34.1-44.9); Hemoglobin 11.2 g/dL (11.2-15.7); Lymphocytes # (Auto) 1.43 K/mcL (1.50-4.80); Lymphocytes % (Auto) 11.5 % (15.5-49.0); Mean Cell Volume 92.5 fL (80.0-100.0); Mean Corpuscular HGB Conc 32.7 g/dL (31.0-36.0); Mean Platelet Volume 10.8 fL (7.4-10.4); Monocytes # (Auto) 1.09 K/mcL (0.10-0.90); Monocytes % (Auto) 8.8 % (1.0-12.0); Platelet Count 260 K/mcL (140-440); RBC 3.71 M/mcL (3.59-5.38); Red Cell Distribution Width 12.8 % (11.5-14.5); WBC 12.4 K/mcL (4.50-11.00)
--- NOTE | 2020-04-28 07:43 | XRay Report ---
HISTORY: Chest pain, dyspnea FINDINGS: Prominent increased interstitial lung markings are present throughout both lung hensley. The greatest involvement is in the lower lobes. Lung volumes are normal and there is no lobar consolidation. These are new finding compared with the prior chest x-ray done on 04/17/20. The heart size is normal. There has been a prior sternotomy performed. The patient also had prior kyphoplasty performed in the lower thoracic spine and repair of a fracture in the proximal right humerus. IMPRESSION: Increased lung markings bilaterally. This could be due to congestive heart failure with interstitial edema or inflammatory process such as a viral pneumonia. Interpreted and Authenticated by: Julian Freitas 04/28/20
[2020-04-28 07:44] LABS: ALT/SGPT 12 U/l (0-40); AST/SGOT 18 U/l (0-37); Albumin 3.4 gm/dL (3.2-5.2); Albumin/Globulin Ratio 1.4 (1.0-2.3); Alkaline Phosphatase 60 U/L (39-117); Bilirubin,Direct < 0.2 mg/dL (0.0-0.3); Bilirubin,Total 0.4 mg/dL (0.0-1.0); Blood Urea Nitrogen 40 mg/dl (8-23); Carbon Dioxide 25 mmol/L (22-30); Chloride 100 mmol/L (96-108); Globulin 2.4 gm/dL (2.2-3.7); Glomerular Filtration Rate 39; Glucose 126 mg/dL (70-105); Lactate Dehydrogenase 325 U/L (94-250); Phosphorous 2.9 mg/dL (2.7-4.5); Triglycerides 126 mg/dl (<150); Uric Acid 9.7 mg/dL (2.5-8.0)
--- NOTE | 2020-04-28 07:46 | Internal Med Progress Note ---
SUBJECTIVE Subjective Patient information: Note initiated : 04/28/20 at 7:42 am Service Date, if different from initiated Date: [] Patient: Kristin Palmer 80 y/o F admitted on 04/27/20 for shortness of breath. Chief Complaint: [] Interval history: History of present illness: Ms. Palmer is a 80 year old F Who presents the ED with shortness of breath and dry cough that started this morning. She does not wear oxygen at home and her oxygen was 86% in triage on room air. Denies nausea vomiting fevers or chills or body aches. History is obtained from patient as well as patient's as she has poor memory. Sounds like she has had shortness of breath for at least 6 months. However in the past day or so it is been worse and she developed a dry cough. She denies any recent travel or sick contacts. She thinks she is gained 4 pounds past week or so. She has chronic lower extremity edema and does not feel like it is changed. Follows with director museum or zoo for coronary artery disease last saw her director museum or zoo this spring with no changes in medication. She has a chronic left bundle branch block. Follows with a customs and border protection inspector. She denies orthopnea or dysphagia. Nothing makes her coughing and shortness of breath worse or better. In the ED she was found to have a borderline white blood cell count, procalcitonin was okay and lactate was mildly elevated. Potassium was low. Chest x-ray with infiltrate right side with some cephalization. 04/28 Patient on 4 L oxygen. Chest x-ray appears to be more consistent with CHF. Will diurese. Patient reports shortness of breath and dry cough but she feels a little better. Has headache but no other complaints. Asked her about the Eliquis and irregular rhythms and she believes she does have history of irregular heart rhythm but does not recall the term atrial fibrillation. Review of Systems: denies fever/chills/nausea/vomiting/chest or abdominal pain/diarrhea. Otherwise see above. Constitutional Vitals: Vital Signs Temp Pulse Resp BP Pulse Ox 98.3 F 66 16 154/64 95 04/28/20 07:01 04/28/20 07:34 04/28/20 07:34 04/28/20 07:01 04/28/20 07:34 Period Temp Pulse Resp BP Sys/De [place] Garza Pulse Ox Last 24 Hr 97.8 F-100 F 55-79 16-30 123-174/49-153 84-100 Intake and Output 04/27/20 04/28/20 04/28/20 21:59 05:59 13:59 Intake Total 1000 Output Total 200 Balance 1000 -200 Weight 86.183 kg 85.139 kg Intake & Output: Intake & Output 04/27/20 04/28/20 04/28/20 21:59 05:59 13:59 Intake Total 1000 Output Total 200 Balance 1000 -200 Weight 86.183 kg 85.139 kg Intake: IV 1000 Sodium Chloride 0.9% 1,000 ml @ 1000 Wide Open IV BOLUS ONE Rx#: [id number] Output: Void Amount 200 Exam: General: Alert, Awake, No acute Distress Eyes/N/T: EOMI, Head/Neck: neck supple, JVD/HJR CV: RRR, 2/6 SM, normal s1/s2 Pulm: right base rales, no wheezing Abd: soft, nontender, +BS x4 Ext: no clubbing/cyanosis. b/l LE 2+ edema Neuro: Alert, no focal deficits, moves all extremities, Skin: warm/dry OBJ DATA Labs CBC & Chem 7: 04/28/20 05:05 04/28/20 05:05 Labs: Abnormal Lab Results 04/28/20 04/28/20 04/27/20 05:05 04:40 18:08 WBC 12.4 H MPV 10.8 H Lymph % (Auto) 11.5 L Gran # 9.47 H Lymph # (Auto) 1.43 L [place] # (Auto) 1.09 H RBC Morphology Polychromasia ABG Methemoglobin 0.3 L VBG pH 7.55 H VBG pCO2 32.5 L VBG pO2 91 H VBG O2 Saturation 89.7 H VBG Base Excess 5.4 H VBG Lactic Acid Carboxyhemoglobin 7.5 H Total Hemoglobin 11.2 L Potassium Chloride Anion Gap BUN Creatinine Glucose Calcium C-Reactive Protein NT-Pro-B Natriuret Pep Ur Leukocyte Esterase 500 A Urine RBC 2 H Urine WBC 98 H 04/27/20 04/27/20 04/27/20 18:08 18:08 18:08 WBC 11.2 H MPV 10.9 H Lymph % (Auto) Gran # Lymph # (Auto) [place] # (Auto) 0.93 H RBC Morphology Polychromasia ABG Methemoglobin VBG pH VBG pCO2 VBG pO2 VBG O2 Saturation VBG Base Excess VBG Lactic Acid 2.3 H Carboxyhemoglobin Total Hemoglobin Potassium 2.3 L* Chloride 92 L Anion Gap 20.0 H BUN 48 H Creatinine 1.4 H Glucose 132 H Calcium 8.5 L C-Reactive Protein NT-Pro-B Natriuret Pep Ur Leukocyte Esterase Urine RBC Urine WBC 04/27/20 04/27/20 18:05 18:05 WBC MPV Lymph % (Auto) Gran # Lymph # (Auto) [place] # (Auto) RBC Morphology Abnorm A Polychromasia 1+ A ABG Methemoglobin VBG pH VBG pCO2 VBG pO2 VBG O2 Saturation VBG Base Excess VBG Lactic Acid Carboxyhemoglobin Total Hemoglobin Potassium Chloride Anion Gap BUN Creatinine Glucose Calcium C-Reactive Protein 1.0 H NT-Pro-B Natriuret Pep 2355.0 H Ur Leukocyte Esterase Urine RBC Urine WBC Meds: Medications Acetaminophen (Tylenol) 650 mg PO Q4H PRN PRN Reason: Pain Albuterol/Ipratropium (Duoneb) 3 ml NEB Q4HP PRN PRN Reason: Shortness Of Breath Last Admin: 04/28/20 04:15 Dose: 3 ml Documented by: Amlodipine Besylate (Norvasc) 5 mg PO BID MIKE Apixaban (Eliquis) 2.5 mg PO BID MIKE Atorvastatin Calcium (Lipitor) 80 mg PO QDAY MIKE Carvedilol (Coreg) 12.5 mg PO BIDCC MIKE Dextrose (Dextrose 50%) 0 ml IV UD PRN PRN Reason: Hypoglycemia Diagnostic Test (Pha) (Accu-Chek) 1 each FS ACHS MIKE Docusate Sodium (Colace) 100 mg PO BID MIKE Doxazosin Mesylate (Cardura) 1 mg PO QHS MIKE Furosemide (Lasix) 40 mg PO BIDD MIKE Glucose (Insta-Glucose) 15 gm PO PRN PRN PRN Reason: Hypoglycemia Potassium Chloride 40 meq/ (Dextrose) 520 mls @ 130 mls/hr IV UD PRN PRN Reason: Potassium < 3 Magnesium Sulfate (Magnesium Sulfate) 2 gm in 50 mls @ 50 mls/hr IV UD PRN PRN Reason: Magnesium </= 1.6 Ceftriaxone Sodium 2 gm/ (Dextrose) 50 mls @ 100 mls/hr IV Q24H [facility]; Protocol Last Admin: 04/27/20 23:57 Dose: Not Given Documented by: Azithromycin 500 mg/ Dextrose 250 mls @ 250 mls/hr IV Q24H [facility]; Protocol Stop: 04/30/20 00:14 Last Admin: 04/27/20 23:58 Dose: 250 mls/hr Documented by: Insulin Human Lispro (Humalog) 0 unit SQ ACHS [facility]; Protocol Isosorbide Mononitrate (Imdur) 60 mg PO QDAY [facility] Levothyroxine Sodium (Synthroid) 125 mcg PO QAMAC [facility] Memantine (Namenda) 10 mg PO QPM [facility] Metoprolol Tartrate (Lopressor) 5 mg IV Q2HP PRN PRN Reason: Tachyarrhythmias HR>110 Nitroglycerin (Nitrostat) 0.4 mg SL Q5M PRN PRN Reason: Chest Pain Non-Formulary Medication (Insulin Degludec [Tresiba Flextouch U-100]) 70 unit SUB-Q QDAY [facility] Non-Formulary Medication (Insulin Aspart U-100 [Novolog U-100 Insulin Aspart]) 0 unit SUB-Q TID [facility] Ondansetron HCl (Zofran) 4 mg IV Q4HP PRN PRN Reason: Nausea And Vomiting Polyethylene Glycol (Miralax) 17 gm PO DAILYP PRN PRN Reason: Constipation Potassium Chloride (Kdur) 20 meq PO BIDCC MIKE Potassium Chloride (Kdur) 40 meq PO UD PRN PRN Reason: Potssium is 3-3.5 Potassium Chloride (Kdur) 40 meq PO UD PRN PRN Reason: Potassium < 3 Senna (Senokot) 2 tab PO DAILYP PRN PRN Reason: Constipation Sodium Chloride (Saline Flush) 10 ml IV Q8 [facility] Last Admin: 04/28/20 05:49 Dose: 10 ml Documented by: Telmisartan (Micardis) 80 mg PO QDAY [facility] ABG Interpretation ABG results: 04/27/20 18:08 ABG Methemoglobin 0.3 L VBG pH 7.55 H VBG pCO2 32.5 L VBG pO2 91 H VBG HCO3 27.7 VBG Total CO2 28.7 VBG O2 Saturation 89.7 H VBG Base Excess 5.4 H A/P Narrative A/P Narrative: A: *Acute hypoxic respiratory failure: 2/2 CHF vs less likely viral pna -PCT/CRP low, BNP elevated but similar to previous labs, no bandemia, afebrile -strep/RVP neg *acute on chronic CHF and right systolic heart failure: *UTI: *Hypokalemia: resolved *DM: *CAD w/cabg&stents: *h/o PAF: on eliquis/bb *HTN: *CKD stage III (base Cr 1.3-1.5): stable *Anemia, chronic: *Hypothyroidism: *Chronic pain: *h/o Gout *Dementia: P: -supp O2, wean as able -IV lasix -f/u CXR -IS -covid pending -potassium replace -cont BB/CCB/ARB/imdur/statin -basal and ssi - -pt/ot -ppx: eliquis DNR Time Spent With Patient Time: Total time spent is greater than 50% in coordination of care (as documented) at patient's floor/unit and/or counseling patient: QUALITY VTE Deep Vein Thrombosis/Pulmonary Embolism Present on Admission: No
[2020-04-28] MEDS: INSULIN LISPRO 1 UNIT/0.01 ML UNIT SQ SCH ×6 (08:32→21:01)
[2020-04-28] MEDS: LEVOTHYROXINE 125 MCG TABLET PO SCH (08:32)
--- NOTE | 2020-04-28 08:38 | XRay Report ---
HISTORY: Shortness breath and follow-up pulmonary infiltrates FINDINGS: There are moderate generalized alveolar infiltrates in both lungs, right worse than left. The greatest involvement is around the right hilum and medially in the right lung base. These have become worse since prior exam done on 04/27/20. The heart is mildly enlarged and has increased in size. There is a very small left-sided pleural effusion causing blunting of left costophrenic sulcus. IMPRESSION: Worsening infiltrates in both lungs with small increase in the heart size. This is more likely due to congestive heart failure with pulmonary edema rather than pneumonia. Interpreted and Authenticated by: Julian Freitas 04/28/20
[2020-04-28] MEDS ORDERED: TELMISARTAN 80 MG TABLET PO SCH ×2 (09:00→14:00)
[2020-04-28 09:21] LABS: Eosinophils % (Manual) 5 % (0-7); Lymphocytes % 18 % (15-49); Monocytes % (Manual) 9 % (1-12); Platelet Estimate NORMAL (NORMAL); RBC Morphology NORMAL (NORMAL); Segmented Neutrophils % 68 % (38-78)
[2020-04-28] MEDS: CARVEDILOL 12.5 MG TABLET PO SCH ×2 (09:28→17:36)
[2020-04-28] MEDS: POTASSIUM CHLORIDE 20 MEQ TABLET PO SCH ×2 (09:28→17:36)
[2020-04-28] MEDS: FUROSEMIDE 40 MG TABLET PO SCH ×2 (09:28→16:15)
[2020-04-28] MEDS: ATORVASTATIN 40 MG TABLET PO SCH (09:29)
[2020-04-28] MEDS: ISOSORBIDE MONONITRATE 60 MG TAB.XL.24H PO SCH (09:29)
[2020-04-28] MEDS: INSULIN GLARGINE, HUMAN 1 UNIT/0.01 ML SQ SCH (09:29)
[2020-04-28] MEDS: amLODIPine 5 MG TABLET PO SCH ×2 (09:29→21:03)
[2020-04-28] MEDS: APIXABAN 5 MG TABLET PO SCH ×2 (09:29→21:02)
[2020-04-28] MEDS: DOCUSATE SODIUM 100 MG CAPSULE PO SCH ×2 (09:29→20:31)
[2020-04-28] MEDS ORDERED: BENZONATATE 100 MG CAPSULE PO ONE (09:38)
[2020-04-28] MEDS ORDERED: FUROSEMIDE 100 MG/10 ML VIAL IV ONE (09:44)
[2020-04-28] MEDS: cefTRIAXone 2 GM in DEXTROSE 5% IN WATER 50 ML IV SCH (13:52)
[2020-04-28] MEDS: TELMISARTAN 40 MG TABLET PO SCH (14:05)
[2020-04-28] MEDS: FUROSEMIDE 40 MG/4 ML VIAL IV SCH (16:15)
[2020-04-28] MEDS: BENZONATATE 100 MG CAPSULE PO PRN ×2 (17:36→21:03)
[2020-04-28] MEDS: AZITHROMYCIN 500 MG in DEXTROSE 5% IN WATER 250 ML IV SCH (21:01)
[2020-04-28] MEDS: MEMANTINE 10 MG TABLET PO SCH (21:03)
[2020-04-28] MEDS: DOXAZOSIN 1 MG TABLET PO SCH (21:19)
[2020-04-29] MEDS: 0.9 % SODIUM CHLORIDE 10 ML SYRINGE IV SCH ×3 (05:55→21:09)
[2020-04-29 06:42] LABS: Basophils # (Auto) 0.04 K/mcL (0.00-0.30); Basophils % (Auto) 0.4 % (0.0-2.0); Eosinophils # (Auto) 0.42 K/mcL (0.00-0.70); Eosinophils % (Auto) 3.9 % (0.0-7.0); Granulocytes % (Auto) 67.1 % (38.0-78.0); Hematocrit 29.4 % (34.1-44.9); Hemoglobin 9.5 g/dL (11.2-15.7); Lymphocytes # (Auto) 1.87 K/mcL (1.50-4.80); Lymphocytes % (Auto) 17.4 % (15.5-49.0); Mean Cell Volume 94.2 fL (80.0-100.0); Mean Corpuscular HGB Conc 32.3 g/dL (31.0-36.0); Mean Platelet Volume 10.9 fL (7.4-10.4); Monocytes % (Auto) 11.2 % (1.0-12.0); Platelet Count 214 K/mcL (140-440); RBC 3.12 M/mcL (3.59-5.38); Red Cell Distribution Width 13.2 % (11.5-14.5); WBC 10.7 K/mcL (4.50-11.00)
--- NOTE | 2020-04-29 07:15 | Internal Med Progress Note ---
SUBJECTIVE Subjective Patient information: Note initiated : 04/29/20 at 7:10 am Service Date, if different from initiated Date: [] Patient: Kristin Palmer 80 y/o F admitted on 04/27/20 for shortness of breath. Chief Complaint: [] Interval history: History of present illness: Ms. Palmer is a 80 year old F Who presents the ED with shortness of breath and dry cough that started this morning. She does not wear oxygen at home and her oxygen was 86% in triage on room air. Denies nausea vomiting fevers or chills or body aches. History is obtained from patient as well as patient's as she has poor memory. Sounds like she has had shortness of breath for at least 6 months. However in the past day or so it is been worse and she developed a dry cough. She denies any recent travel or sick contacts. She thinks she is gained 4 pounds past week or so. She has chronic lower extremity edema and does not feel like it is changed. Follows with remote broadcast technician for coronary artery disease last saw her remote broadcast technician this spring with no changes in medication. She has a chronic left bundle branch block. Follows with a presetter operator. She denies orthopnea or dysphagia. Nothing makes her coughing and shortness of breath worse or better. In the ED she was found to have a borderline white blood cell count, procalcitonin was okay and lactate was mildly elevated. Potassium was low. Chest x-ray with infiltrate right side with some cephalization. 04/28 Patient on 4 L oxygen. Chest x-ray appears to be more consistent with CHF. Will sherley. Patient reports shortness of breath and dry cough but she feels a little better. Has headache but no other complaints. Asked her about the Eliquis and irregular rhythms and she believes she does have history of irregular heart rhythm but does not recall the term atrial fibrillation. 04/29 Patient has a mild cough that she feels a little better. She denies shortness of breath this morning but is on oxygen. CT chest with effusion greater on the right. Will ask radiology to drain. Review of Systems: denies fever/chills/nausea/vomiting/chest or abdominal pain/diarrhea. Otherwise see above. Constitutional Vitals: Vital Signs Temp Pulse Resp BP Pulse Ox 98.9 F 62 21 122/52 93 04/29/20 04:01 04/29/20 06:02 04/29/20 06:02 04/29/20 06:01 04/29/20 06:02 Period Temp Pulse Resp BP Sys/[place] Pulse Ox Last 24 Hr 98.1 F-100.4 F 54-89 16-27 103-173/42-151 87-96 Intake and Output 04/28/20 04/29/20 04/29/20 21:59 05:59 13:59 Intake Total 1290 650 Output Total 650 626 Balance 640 24 Weight 87.175 kg Intake & Output: Intake & Output 04/28/20 04/29/20 04/29/20 21:59 05:59 13:59 Intake Total 1290 650 Output Total 650 626 Balance 640 24 Weight 87.175 kg Intake: IV 50 250 Zithromax 500 mg In Dextrose 5% 0 250 in Water 250 ml @ 250 mls/hr IV Q24H [facility] Rx#:[id number] Rocephin 2 gm In Dextrose 5% in 50 Water 50 ml @ 100 mls/hr IV Q24H [facility] Rx#:[id number] Oral 1240 400 Output: Void Amount 650 625 # of times incontinent of urine 1 Other: Meal Dinner Percent of Meal Consumed 75% Feeding Ability Independent Urine Appearance Clear Clear Urine Color Pale Pale Urine Odor Normal Normal Stool Size Moderate Moderate Stool Color Brown Brown Stool Consistency Soft Soft Formed Formed # Voids 1 # Bowel Movements 1 Exam: General: Alert, Awake, No acute Distress Eyes/N/T: EOMI, Head/Neck: neck supple, CV: RRR, 2/6 SM, normal s1/s2 Pulm: diminished b/l bases, mild right base rales, no wheezing Abd: soft, nontender, +BS x4 Ext: no clubbing/cyanosis. b/l LE 2+ edema Neuro: Alert, no focal deficits, moves all extremities, Skin: warm/dry OBJ DATA Labs CBC & Chem 7: 04/29/20 05:10 04/29/20 05:15 Labs: Abnormal Lab Results 04/29/20 04/28/20 04/28/20 05:10 05:05 05:05 WBC 12.4 H RBC 3.12 L Hgb 9.5 L Hct 29.4 L MPV 10.9 H 10.8 H Lymph % (Auto) 11.5 L Gran # 9.47 H Lymph # (Auto) 1.43 L [place] # (Auto) 1.20 H 1.09 H RBC Morphology Polychromasia ABG Methemoglobin VBG pH VBG pCO2 VBG pO2 VBG O2 Saturation VBG Base Excess VBG Lactic Acid Carboxyhemoglobin Total Hemoglobin Potassium Chloride Anion Gap BUN 40 H Creatinine 1.3 H Glucose 126 H Uric Acid 9.7 H Calcium 8.0 L Magnesium 2.8 H Lactate Dehydrogenase 325 H C-Reactive Protein NT-Pro-B Natriuret Pep Total Protein 5.8 L Ur Leukocyte Esterase Urine RBC Urine WBC 04/28/20 04/27/20 04/27/20 04:40 18:08 18:08 WBC RBC Hgb Hct MPV Lymph % (Auto) Gran # Lymph # (Auto) [place] # (Auto) RBC Morphology Polychromasia ABG Methemoglobin 0.3 L VBG pH 7.55 H VBG pCO2 32.5 L VBG pO2 91 H VBG O2 Saturation 89.7 H VBG Base Excess 5.4 H VBG Lactic Acid 2.3 H Carboxyhemoglobin 7.5 H Total Hemoglobin 11.2 L Potassium Chloride Anion Gap BUN Creatinine Glucose Uric Acid Calcium Magnesium Lactate Dehydrogenase C-Reactive Protein NT-Pro-B Natriuret Pep Total Protein Ur Leukocyte Esterase 500 A Urine RBC 2 H Urine WBC 98 H 04/27/20 04/27/20 04/27/20 18:08 18:08 18:05 WBC 11.2 H RBC Hgb Hct MPV 10.9 H Lymph % (Auto) Gran # Lymph # (Auto) [place] # (Auto) 0.93 H RBC Morphology Polychromasia ABG Methemoglobin VBG pH VBG pCO2 VBG pO2 VBG O2 Saturation VBG Base Excess VBG Lactic Acid Carboxyhemoglobin Total Hemoglobin Potassium 2.3 L* Chloride 92 L Anion Gap 20.0 H BUN 48 H Creatinine 1.4 H Glucose 132 H Uric Acid Calcium 8.5 L Magnesium Lactate Dehydrogenase C-Reactive Protein 1.0 H NT-Pro-B Natriuret Pep 2355.0 H Total Protein Ur Leukocyte Esterase Urine RBC Urine WBC 04/27/20 18:05 WBC RBC Hgb Hct MPV Lymph % (Auto) Gran # Lymph # (Auto) [place] # (Auto) RBC Morphology Abnorm A Polychromasia 1+ A ABG Methemoglobin VBG pH VBG pCO2 VBG pO2 VBG O2 Saturation VBG Base Excess VBG Lactic Acid Carboxyhemoglobin Total Hemoglobin Potassium Chloride Anion Gap BUN Creatinine Glucose Uric Acid Calcium Magnesium Lactate Dehydrogenase C-Reactive Protein NT-Pro-B Natriuret Pep Total Protein Ur Leukocyte Esterase Urine RBC Urine WBC Meds: Medications Acetaminophen (Tylenol) 650 mg PO Q4H PRN PRN Reason: Pain Albuterol/Ipratropium (Duoneb) 3 ml NEB Q4HP PRN PRN Reason: Shortness Of Breath Last Admin: 04/28/20 04:15 Dose: 3 ml Documented by: Amlodipine Besylate (Norvasc) 5 mg PO BID [facility] Last Admin: 04/28/20 21:03 Dose: 5 mg Documented by: Apixaban (Eliquis) 2.5 mg PO BID [facility] Last Admin: 04/28/20 21:02 Dose: 2.5 mg Documented by: Atorvastatin Calcium (Lipitor) 80 mg PO QDAY [facility] Last Admin: 04/28/20 09:29 Dose: 80 mg Documented by: Benzonatate (Tessalon) 200 mg PO TIDP PRN PRN Reason: Cough Last Admin: 04/28/20 21:03 Dose: 200 mg Documented by: Carvedilol (Coreg) 12.5 mg PO BIDCC [facility] Last Admin: 04/28/20 17:36 Dose: 12.5 mg Documented by: Dextrose (Dextrose 50%) 0 ml IV UD PRN PRN Reason: Hypoglycemia Diagnostic Test (Pha) (Accu-Chek) 1 each FS ACHS [facility] Last Admin: 04/28/20 21:03 Dose: 1 each Documented by: Docusate Sodium (Colace) 100 mg PO BID [facility] Last Admin: 04/28/20 20:31 Dose: Not Given Documented by: Doxazosin Mesylate (Cardura) 1 mg PO QHS [facility] Last Admin: 04/28/20 21:19 Dose: 1 mg Documented by: Furosemide (Lasix) 40 mg PO BIDD [facility] Last Admin: 04/28/20 16:15 Dose: Not Given Documented by: Furosemide (Lasix) 40 mg IV BIDD [facility] Last Admin: 04/28/20 16:15 Dose: Not Given Documented by: Glucose (Insta-Glucose) 15 gm PO PRN PRN PRN Reason: Hypoglycemia Potassium Chloride 40 meq/ (Dextrose) 520 mls @ 130 mls/hr IV UD PRN PRN Reason: Potassium < 3 Magnesium Sulfate (Magnesium Sulfate) 2 gm in 50 mls @ 50 mls/hr IV UD PRN PRN Reason: Magnesium </= 1.6 Ceftriaxone Sodium 2 gm/ (Dextrose) 50 mls @ 100 mls/hr IV Q24H [facility]; Protocol Last Infusion: 04/28/20 14:45 Dose: Infused Documented by: Azithromycin 500 mg/ Dextrose 250 mls @ 250 mls/hr IV Q24H [facility]; Protocol Stop: 04/30/20 00:14 Last Infusion: 04/28/20 22:37 Dose: Infused Documented by: Insulin Glargine (Lantus) 70 unit SQ DAILY [facility] Last Admin: 04/28/20 09:29 Dose: 70 units Documented by: Insulin Human Lispro (Humalog) 15 unit SQ TIDAC [facility] Last Admin: 04/28/20 17:35 Dose: 15 units Documented by: Insulin Human Lispro (Humalog) 0 [facility] SQ [facility]; Protocol Last Admin: 04/28/20 21:01 Dose: 6 unit Documented by: Isosorbide Mononitrate (Imdur) 60 mg PO QDAY [facility] Last Admin: 04/28/20 09:29 Dose: 60 mg Documented by: Levothyroxine Sodium (Synthroid) 125 mcg PO QAMAC [facility] Last Admin: 04/28/20 08:32 Dose: 125 mcg Documented by: Memantine (Namenda) 10 mg PO QPM [facility] Last Admin: 04/28/20 21:03 Dose: 10 mg Documented by: Metoprolol Tartrate (Lopressor) 5 mg IV Q2HP PRN PRN Reason: Tachyarrhythmias HR>110 Nitroglycerin (Nitrostat) 0.4 mg SL Q5M PRN PRN Reason: Chest Pain Ondansetron HCl (Zofran) 4 mg IV Q4HP PRN PRN Reason: Nausea And Vomiting Polyethylene Glycol (Miralax) 17 gm PO DAILYP PRN PRN Reason: Constipation Potassium Chloride (Kdur) 20 meq PO BIDCC [facility] Last Admin: 04/28/20 17:36 Dose: 20 meq Documented by: Potassium Chloride (Kdur) 40 meq PO UD PRN PRN Reason: Potssium is 3-3.5 Potassium Chloride (Kdur) 40 meq PO UD PRN PRN Reason: Potassium < 3 Senna (Senokot) 2 tab PO DAILYP PRN PRN Reason: Constipation Sodium Chloride (Saline Flush) 10 ml IV Q8 [facility] Last Admin: 04/29/20 05:55 Dose: 10 ml Documented by: Telmisartan (Telmisartan) 80 mg PO DAILY [facility] Last Admin: 04/28/20 14:05 Dose: 80 mg Documented by: ABG Interpretation ABG results: 04/27/20 18:08 ABG Methemoglobin 0.3 L VBG pH 7.55 H VBG pCO2 32.5 L VBG pO2 91 H VBG HCO3 27.7 VBG Total CO2 28.7 VBG O2 Saturation 89.7 H VBG Base Excess 5.4 H A/P Narrative A/P Narrative: A: *Acute hypoxic respiratory failure: 2/2 CHF/Pleural effusions vs less likely viral pna -on 3-4L -PCT/CRP low, BNP elevated but similar to previous labs, no bandemia, a febrile -strep/myco/RVP neg *Acute on chronic CHF and right systolic heart failure: *Pleural effusions R>L: *UTI: *Hypokalemia: resolved *DM: *CAD w/cabg&stents: *PAF: on eliquis/bb *HTN: *CKD stage III (base Cr 1.3-1.5): stable *Anemia, chronic: *Hypothyroidism: *Chronic pain: *h/o Gout *Dementia: P: -supp O2, wean as able -IV lasix -Thoracenteiss -IS -Covid pending -echo pending -potassium replace -cont BB/CCB/ARB/imdur/statin -basal and ssi -pt/ot -ppx: eliquis DNR Time Spent With Patient Time: Total time spent is greater than 50% in coordination of care (as documented) at patient's floor/unit and/or counseling patient: QUALITY VTE Deep Vein Thrombosis/Pulmonary Embolism Present on Admission: No
[2020-04-29] MEDS: LEVOTHYROXINE 125 MCG TABLET PO SCH (07:16)
[2020-04-29] MEDS: BENZONATATE 100 MG CAPSULE PO PRN ×2 (07:16→21:08)
[2020-04-29] MEDS: INSULIN LISPRO 1 UNIT/0.01 ML UNIT SQ SCH ×8 (07:35→21:08)
[2020-04-29 07:37] LABS: ALT/SGPT 9 U/l (0-40); AST/SGOT 13 U/l (0-37); Albumin/Globulin Ratio 1.3 (1.0-2.3); Alkaline Phosphatase 52 U/L (39-117); Bilirubin,Direct < 0.2 mg/dL (0.0-0.3); Bilirubin,Total 0.5 mg/dL (0.0-1.0); Blood Urea Nitrogen 44 mg/dl (8-23); Calcium 8.2 mg/dl (8.6-10.4); Carbon Dioxide 26 mmol/L (22-30); Chloride 99 mmol/L (96-108); Globulin 2.3 gm/dL (2.2-3.7); Glomerular Filtration Rate 33; Glucose 116 mg/dL (70-105); Lactate Dehydrogenase 296 U/L (94-250); Phosphorous 3.4 mg/dL (2.7-4.5); Triglycerides 123 mg/dl (<150); Uric Acid 9.3 mg/dL (2.5-8.0)
--- NOTE | 2020-04-29 09:02 | Cat Scan Report ---
History: Pulmonary infiltrates, Hypoxia despite diuresis, Covid precautions TECHNIQUE: The chest was imaged without contrast at 2.5 mm intervals. Sagittal and coronal and axial MIPS images were created. The radiation exposure was limited using dose reduction technology. FINDINGS: There is a moderate-sized layering right-sided pleural effusion and a small layering left-sided pleural effusion. Associated with this is atelectasis in the adjacent lower lobes, right greater than left. There are bronchograms in these regions of atelectasis. There is a mild mosaic pattern of groundglass alveolar opacities, predominantly involving the right upper lobe and right middle lobe. Small zone of atelectasis is seen in the inferior segment of lingula. There is relative sparing of the left upper lobe. The heart is mildly enlarged left ventricle is dilated. Severe atherosclerotic coronary artery disease is present. There has been prior coronary bypass surgery. Central airways are normal. Incidentally noted is a cluster simple cyst located in the upper pole of left kidney. Severe atherosclerotic disease is present in the abdominal aorta. There appears to be stenosis of the mid abdominal aorta. Comparison with the prior chest x-ray done on 04/28/20 shows the right-sided pleural effusion has enlarged. 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 Moderate size pleural effusions are not normally associated with Covid infections. Asymmetric distribution of mild groundglass alveolar opacities in the right lung. This could be due to asymmetric distribution of pulmonary edema or pneumonia. Severe atherosclerotic disease involving the coronary arteries and abdominal aorta Interpreted and Authenticated by: Julian Freitas 04/29/20
[2020-04-29] MEDS ORDERED: ALBUMIN HUMAN 12.5 GM/50 ML BAG IV ONE (09:05)
[2020-04-29] MEDS: DOCUSATE SODIUM 100 MG CAPSULE PO SCH ×2 (09:31→21:08)
[2020-04-29] MEDS: FUROSEMIDE 40 MG/4 ML VIAL IV SCH ×2 (09:31→17:10)
[2020-04-29] MEDS: POTASSIUM CHLORIDE 20 MEQ TABLET PO SCH ×2 (09:31→17:10)
[2020-04-29] MEDS: ATORVASTATIN 40 MG TABLET PO SCH (09:31)
[2020-04-29] MEDS: CARVEDILOL 12.5 MG TABLET PO SCH ×2 (09:31→17:11)
[2020-04-29] MEDS: TELMISARTAN 40 MG TABLET PO SCH (09:32)
[2020-04-29] MEDS: amLODIPine 5 MG TABLET PO SCH ×2 (09:32→21:07)
[2020-04-29] MEDS: APIXABAN 5 MG TABLET PO SCH ×2 (09:33→21:07)
[2020-04-29] MEDS: INSULIN GLARGINE, HUMAN 1 UNIT/0.01 ML SQ SCH (09:33)
[2020-04-29] MEDS: ISOSORBIDE MONONITRATE 60 MG TAB.XL.24H PO SCH (09:36)
[2020-04-29] MEDS: FUROSEMIDE 40 MG TABLET PO SCH (10:30)
[2020-04-29 10:57] LABS: INR 1.3 (0.9-1.1)
--- NOTE | 2020-04-29 12:28 | Ultrasound Report ---
CLINICAL INFORMATION: Shortness of breath and pleural effusion TECHNIQUE: The procedure and risks were explained the patient consented. Ultrasound reveals a moderate size pleural effusion in the right lower thorax. The skin over the right lower back was prepped with ChloraPrep and then anesthetized with 1% lidocaine. Using ultrasound guidance a multi sidehole drainage catheter was inserted. 450 cc of clear yellow fluid was removed and sent to the laboratory for analysis. Most of the visualized fluid was drained. She tolerated the procedure well without complication. IMPRESSION: Successful right-sided thoracentesis removing 450 cc of fluid Interpreted and Authenticated by: Julian Freitas 04/29/20
--- NOTE | 2020-04-29 12:31 | XRay Report ---
HISTORY: Post right-sided thoracentesis FINDINGS: Most of the right-sided pleural effusion has been removed. The right lower lobe atelectasis has improved. There may be a tiny right apical pneumothorax, less than 5% in volume. There is stable atelectasis in the left lower lobe with a very small left-sided effusion. The heart is mildly enlarged. IMPRESSION: Near-complete evacuation of the right side pleural effusion, allowing the right lower lobe to partially reexpand. Possible tiny right apical pneumothorax Interpreted and Authenticated by: Julian Freitas 04/29/20
--- NOTE | 2020-04-29 12:45 | Ultrasound Report ---
Impression: This is dictated in conjunction with the ultrasound-guided thoracentesis. Interpreted and Authenticated by: Julian Freitas 04/29/20
[2020-04-29 13:58] LABS: pH,Body Fluid 7.81
[2020-04-29 14:05] LABS: Glucose,Pleural Fluid 170 mg/dL; LDH,Pleural Fluid 120 U/L
[2020-04-29 14:27] LABS: Appearance,Pleural Fluid CLEAR; Color,Pleural Fluid P. YELLOW; Lymphocytes,Pleural Fluid 42 %; Mesothelial,Pleural Fluid 6 %; Monocytes,Pleural Fluid 29 %; Neutrophils,Pleural Fluid 23 %; Nucleated Cells,Pleural Fld 254 /cumm; RBC,Pleural Fluid < 50000 /cumm
[2020-04-29 16:22] LABS: Total Protein,Body Fluid 1.7 gm/dL
[2020-04-29] MEDS: MEMANTINE 10 MG TABLET PO SCH (21:07)
[2020-04-29] MEDS: DOXAZOSIN 1 MG TABLET PO SCH (21:07)
[2020-04-29] MEDS: AZITHROMYCIN 500 MG in DEXTROSE 5% IN WATER 250 ML IV SCH (21:08)
[2020-04-30] MEDS: 0.9 % SODIUM CHLORIDE 10 ML SYRINGE IV SCH ×3 (05:43→21:24)
[2020-04-30 07:09] LABS: ALT/SGPT 9 U/l (0-40); AST/SGOT 12 U/l (0-37); Alkaline Phosphatase 49 U/L (39-117); Bilirubin,Direct < 0.2 mg/dL (0.0-0.3); Bilirubin,Total 0.4 mg/dL (0.0-1.0); Carbon Dioxide 25 mmol/L (22-30); Chloride 98 mmol/L (96-108); Glomerular Filtration Rate 31; Glucose 78 mg/dL (70-105); Lactate Dehydrogenase 252 U/L (94-250); Phosphorous 4.1 mg/dL (2.7-4.5); Triglycerides 110 mg/dl (<150); Uric Acid 10.7 mg/dL (2.5-8.0)
[2020-04-30 07:13] LABS: Albumin/Globulin Ratio 1.3 (1.0-2.3); Blood Urea Nitrogen 54 mg/dl (8-23); Globulin 2.3 gm/dL (2.2-3.7)
[2020-04-30] MEDS: LEVOTHYROXINE 125 MCG TABLET PO SCH (07:48)
--- NOTE | 2020-04-30 08:07 | Internal Med Progress Note ---
SUBJECTIVE Subjective Patient information: Note initiated : 04/30/20 at 8:03 am Service Date, if different from initiated Date: [] Patient: Kristin Palmer a 80 y/o F admitted on 04/27/20 for shortness of breath. Chief Complaint: [] Interval history: History of present illness: Ms. Palmer is a 80 year old F Who presents the ED with shortness of breath and dry cough that started this morning. She does not wear oxygen at home and her oxygen was 86% in triage on room air. Denies nausea vomiting fevers or chills or body aches. History is obtained from patient as well as patient's as she has poor memory. Sounds like she has had shortness of breath for at least 6 months. However in the past day or so it is been worse and she developed a dry cough. She denies any recent travel or sick contacts. She thinks she is gained 4 pounds past week or so. She has chronic lower extremity edema and does not feel like it is changed. Follows with nip wrapper for coronary artery disease last saw her nip wrapper this spring with no changes in medication. She has a chronic left bundle branch block. Follows with a yard spotter. She denies orthopnea or dysphagia. Nothing makes her coughing and shortness of breath worse or better. In the ED she was found to have a borderline white blood cell count, procalcitonin was okay and lactate was mildly elevated. Potassium was low. Chest x-ray with infiltrate right side with some cephalization. 04/28 Patient on 4 L oxygen. Chest x-ray appears to be more consistent with CHF. Will sherley. Patient reports shortness of breath and dry cough but she feels a little better. Has headache but no other complaints. Asked her about the Eliquis and irregular rhythms and she believes she does have history of irregular heart rhythm but does not recall the term atrial fibrillation. 04/29 Patient has a mild cough that she feels a little better. She denies shortness of breath this morning but is on oxygen. CT chest with effusion greater on the right. Will ask radiology to drain. 04/30 Feeling well this morning. She is sitting in a chair on room air. She had a thoracentesis today at 450cc of transudate of fluid yesterday. No new complaints. Review of Systems: denies fever/chills/nausea/vomiting/chest or abdominal pain/diarrhea. Otherwise see above. Constitutional Vitals: Vital Signs Temp Pulse Resp BP Pulse Ox 98.4 F 60 20 145/45 95 04/30/20 04:01 04/30/20 06:01 04/29/20 17:00 04/30/20 06:01 04/30/20 06:01 Period Temp Pulse Resp BP Sys/De [place] Garza Pulse Ox Last 24 Hr 98.2 F-99.5 F 57-66 17- 113-145/43-91 91-100 Intake and Output 04/29/20 04/30/20 04/30/20 21:59 05:59 13:59 Intake Total 620 250 Output Total 700 950 Balance -80 -700 Weight 86.863 kg Intake & Output: Intake & Output 04/29/20 04/30/20 04/30/20 21:59 05:59 13:59 Intake Total 620 250 Output Total 700 950 Balance -80 -700 Weight 86.863 kg Intake: IV 250 Zithromax 500 mg In Dextrose 5% 250 in Water 250 ml @ 250 mls/hr IV Q24H [facility] Rx#:[id number] Oral 620 Output: Void Amount 700 950 Other: Meal Dinner Percent of Meal Consumed 100% Urine Appearance Clear Urine Color Bright Yellow # Bowel Movements 1 Exam: General: Alert, Awake, No acute Distress Eyes/N/T: EOMI, Head/Neck: neck supple, CV: RRR, 2/6 SM, normal s1/s2 Pulm: diminished b/l bases but better, mild right base rales improved, no wh eezing Abd: soft, nontender, +BS x4 Ext: no clubbing/cyanosis. b/l LE 2+ edema improving Neuro: Alert, no focal deficits, moves all extremities, Skin: warm/dry OBJ DATA Labs CBC & Chem 7: 04/29/20 05:10 04/30/20 05:20 Labs: Abnormal Lab Results 04/30/20 04/29/20 04/29/20 05:20 09:45 05:15 WBC RBC Hgb Hct MPV Lymph % (Auto) Gran # Lymph # (Auto) [place] # (Auto) RBC Morphology Polychromasia PT 17.0 H INR 1.3 H ABG Methemoglobin VBG pH VBG pCO2 VBG pO2 VBG O2 Saturation VBG Base Excess VBG Lactic Acid Carboxyhemoglobin Total Hemoglobin Potassium Chloride Anion Gap BUN 54 H 44 H Creatinine 1.6 H 1.5 H Glucose 116 H Uric Acid 10.7 H 9.3 H Calcium 8.0 L 8.2 L Magnesium 2.7 H Lactate Dehydrogenase 252 H 296 H C-Reactive Protein NT-Pro-B Natriuret Pep Total Protein 5.3 L 5.3 L Albumin 3.0 L 3.0 L Ur Leukocyte Esterase Urine RBC Urine WBC 04/29/20 04/28/20 04/28/20 05:10 05:05 05:05 WBC 12.4 H RBC 3.12 L Hgb 9.5 L Hct 29.4 L MPV 10.9 H 10.8 H Lymph % (Auto) 11.5 L Gran # 9.47 H Lymph # (Auto) 1.43 L [place] # (Auto) 1.20 H 1.09 H RBC Morphology Polychromasia PT INR ABG Methemoglobin VBG pH VBG pCO2 VBG pO2 VBG O2 Saturation VBG Base Excess VBG Lactic Acid Carboxyhemoglobin Total Hemoglobin Potassium Chloride Anion Gap BUN 40 H Creatinine 1.3 H Glucose 126 H Uric Acid 9.7 H Calcium 8.0 L Magnesium 2.8 H Lactate Dehydrogenase 325 H C-Reactive Protein NT-Pro-B Natriuret Pep Total Protein 5.8 L Albumin Ur Leukocyte Esterase Urine RBC Urine WBC 04/28/20 04/27/20 04/27/20 04:40 18:08 18:08 WBC RBC Hgb Hct MPV Lymph % (Auto) Gran # Lymph # (Auto) [place] # (Auto) RBC Morphology Polychromasia PT INR ABG Methemoglobin 0.3 L VBG pH 7.55 H VBG pCO2 32.5 L VBG pO2 91 H VBG O2 Saturation 89.7 H VBG Base Excess 5.4 H VBG Lactic Acid 2.3 H Carboxyhemoglobin 7.5 H Total Hemoglobin 11.2 L Potassium Chloride Anion Gap BUN Creatinine Glucose Uric Acid Calcium Magnesium Lactate Dehydrogenase C-Reactive Protein NT-Pro-B Natriuret Pep Total Protein Albumin Ur Leukocyte Esterase 500 A Urine RBC 2 H Urine WBC 98 H 04/27/20 04/27/20 04/27/20 18:08 18:08 18:05 WBC 11.2 H RBC Hgb Hct MPV 10.9 H Lymph % (Auto) Gran # Lymph # (Auto) [place] # (Auto) 0.93 H RBC Morphology Polychromasia PT INR ABG Methemoglobin VBG pH VBG pCO2 VBG pO2 VBG O2 Saturation VBG Base Excess VBG Lactic Acid Carboxyhemoglobin Total Hemoglobin Potassium 2.3 L* Chloride 92 L Anion Gap 20.0 H BUN 48 H Creatinine 1.4 H Glucose 132 H Uric Acid Calcium 8.5 L Magnesium Lactate Dehydrogenase C-Reactive Protein 1.0 H NT-Pro-B Natriuret Pep 2355.0 H Total Protein Albumin Ur Leukocyte Esterase Urine RBC Urine WBC 04/27/20 18:05 WBC RBC Hgb Hct MPV Lymph % (Auto) Gran # Lymph # (Auto) [place] # (Auto) RBC Morphology Abnorm A Polychromasia 1+ A PT INR ABG Methemoglobin VBG pH VBG pCO2 VBG pO2 VBG O2 Saturation VBG Base Excess VBG Lactic Acid Carboxyhemoglobin Total Hemoglobin Potassium Chloride Anion Gap BUN Creatinine Glucose Uric Acid Calcium Magnesium Lactate Dehydrogenase C-Reactive Protein NT-Pro-B Natriuret Pep Total Protein Albumin Ur Leukocyte Esterase Urine RBC Urine WBC Meds: Medications Acetaminophen (Tylenol) 650 mg PO Q4H PRN PRN Reason: Pain Albuterol/Ipratropium (Duoneb) 3 ml NEB Q4HP PRN PRN Reason: Shortness Of Breath Last Admin: 04/28/20 04:15 Dose: 3 ml Documented by: Amlodipine Besylate (Norvasc) 5 mg PO BID [facility] Last Admin: 04/29/20 21:07 Dose: 5 mg Documented by: Apixaban (Eliquis) 2.5 mg PO BID [facility] Last Admin: 04/29/20 21:07 Dose: 2.5 mg Documented by: Atorvastatin Calcium (Lipitor) 80 mg PO QDAY [facility] Last Admin: 04/29/20 09:31 Dose: 80 mg Documented by: Benzonatate (Tessalon) 200 mg PO TIDP PRN PRN Reason: Cough Last Admin: 04/29/20 21:08 Dose: 200 mg Documented by[facility] Last Admin: 04/29/20 17:11 Dose: 12.5 mg Documented by: Dextrose (Dextrose 50%) 0 ml IV UD PRN PRN Reason: Hypoglycemia Diagnostic Test (Pha) (Accu-Chek) 1 each FS ACHS [facility] Last Admin: 04/29/20 21:07 Dose: 1 each Documented by: Docusate Sodium (Colace) 100 mg PO BID [facility] Last Admin: 04/29/20 21:08 Dose: 100 mg Documented by: Doxazosin Mesylate (Cardura) 1 mg PO QHS [facility] Last Admin: 04/29/20 21:07 Dose: 1 mg Documented by: Furosemide (Lasix) 40 mg IV BIDD [facility] Last Admin: 04/29/20 17:10 Dose: 40 mg Documented by: Glucose (Insta-Glucose) 15 gm PO PRN PRN PRN Reason: Hypoglycemia Potassium Chloride 40 meq/ (Dextrose) 520 mls @ 130 mls/hr IV UD PRN PRN Reason: Potassium < 3 Magnesium Sulfate (Magnesium Sulfate) 2 gm in 50 mls @ 50 mls/hr IV UD PRN PRN Reason: Magnesium </= 1.6 Ceftriaxone Sodium 2 gm/ (Dextrose) 50 mls @ 100 mls/hr IV Q24H [facility]; Protocol Last Infusion: 04/28/20 14:45 Dose: Infused Documented by: Insulin Glargine (Lantus) 70 unit SQ DAILY [facility] Last Admin: 04/29/20 09:33 Dose: 70 units Documented by: Insulin Human Lispro (Humalog) 15 unit SQ TIDAC [facility] Last Admin: 04/29/20 17:54 Dose: 15 units Documented by: Insulin Human [facility]) [facility]; Protocol Last Admin: 04/29/20 21:08 Dose: Not Given Documented by: Isosorbide Mononitrate (Imdur) 60 mg PO QDAY [facility] Last Admin: 04/29/20 09:36 Dose: 60 mg Documented by: Levothyroxine Sodium (Synthroid) 125 mcg PO QAMAC [facility] Last Admin: 04/30/20 07:48 Dose: 125 mcg Documented by: Memantine (Namenda) 10 mg PO QPM [facility] Last Admin: 04/29/20 21:07 Dose: 10 mg Documented by: Metoprolol Tartrate (Lopressor) 5 mg IV Q2HP PRN PRN Reason: Tachyarrhythmias HR>110 Nitroglycerin (Nitrostat) 0.4 mg SL Q5M PRN PRN Reason: Chest Pain Ondansetron HCl (Zofran) 4 mg IV Q4HP PRN PRN Reason: Nausea And Vomiting Polyethylene Glycol (Miralax) 17 gm PO DAILYP PRN PRN Reason: Constipation Potassium Chloride (Kdur) 20 meq PO BIDCC [facility] Last Admin: 04/29/20 17:10 Dose: 20 meq Documented by: Potassium Chloride (Kdur) 40 meq PO UD PRN PRN Reason: Potssium is 3-3.5 Potassium Chloride (Kdur) 40 meq PO UD PRN PRN Reason: Potassium < 3 Senna (Senokot) 2 tab PO DAILYP PRN PRN Reason: Constipation Sodium Chloride (Saline Flush) 10 ml IV Q8 [facility] Last Admin: 04/30/20 05:43 Dose: 10 ml Documented by: Telmisartan (Telmisartan) 80 mg PO DAILY [facility] Last Admin: 04/29/20 09:32 Dose: 80 mg Documented by: ABG Interpretation ABG results: 04/27/20 18:08 ABG Methemoglobin 0.3 L VBG pH 7.55 H VBG pCO2 32.5 L VBG pO2 91 H VBG HCO3 27.7 VBG Total CO2 28.7 VBG O2 Saturation 89.7 H VBG Base Excess 5.4 H A/P Narrative A/P Narrative: A: *Acute hypoxic respiratory failure: 2/2 CHF/Pleural effusions vs less likely viral pna. & Atelectasis -now on room air -PCT/CRP low, BNP elevated but similar to previous labs, no bandemia, afebrile -strep/myco/RVP neg *Acute on chronic CHF and right systolic heart failure: -echo with good EF, Diastolic dysfxn, Pulm HTN *Pleural effusions R>L: -s/p Thora (04/29) of 450cc. Transudative *UTI: *Hypokalemia: resolved *DM: *CAD w/cabg&stents: *PAF: on eliquis/bb *HTN: *CKD stage III (base Cr 1.3-1.5): stable *Anemia, chronic: *Hypothyroidism: *Chronic pain: *h/o Gout *Dementia: P: -supp O2 prn -hold lasix -IS -Covid pending -abx pending UC -cont BB/CCB/ARB/imdur/statin -basal and ssi -pt/ot -ppx: eliqugera DNR Time Spent With Patient Time: Total time spent is greater than 50% in coordination of care (as documented) at patient's floor/unit and/or counseling patient: QUALITY VTE Deep Vein Thrombosis/Pulmonary Embolism Present on Admission: No
[2020-04-30] MEDS: INSULIN LISPRO 1 UNIT/0.01 ML UNIT SQ SCH ×5 (08:33→21:37)
[2020-04-30] MEDS: cefTRIAXone 2 GM in DEXTROSE 5% IN WATER 50 ML IV SCH (09:22)
[2020-04-30] MEDS: amLODIPine 5 MG TABLET PO SCH ×2 (09:22→21:24)
[2020-04-30] MEDS: TELMISARTAN 40 MG TABLET PO SCH (09:22)
[2020-04-30] MEDS: DOCUSATE SODIUM 100 MG CAPSULE PO SCH ×2 (09:22→21:25)
[2020-04-30] MEDS: APIXABAN 5 MG TABLET PO SCH ×2 (09:22→21:24)
[2020-04-30] MEDS: ISOSORBIDE MONONITRATE 60 MG TAB.XL.24H PO SCH (09:22)
[2020-04-30] MEDS: CARVEDILOL 12.5 MG TABLET PO SCH ×2 (09:23→17:38)
[2020-04-30] MEDS: ATORVASTATIN 40 MG TABLET PO SCH (09:23)
[2020-04-30] MEDS: POTASSIUM CHLORIDE 20 MEQ TABLET PO SCH (09:23)
[2020-04-30] MEDS: INSULIN GLARGINE, HUMAN 1 UNIT/0.01 ML SQ SCH (09:38)
[2020-04-30] MEDS: FUROSEMIDE 40 MG/4 ML VIAL IV SCH (10:12)
--- NOTE | 2020-04-30 10:31 | Discharge Summary ---
Discharge Provider Provider Patient information: Note initiated : 04/30/20 at 10:30 am Service Date, if different from initiated Date: [] Patient: Kristin Palmer 80 y/o F admitted on 04/27/20 for shortness of breath. Chief Complaint: [] Date of admission: 04/27/20 22:50 Discharge date: 05/01/20 Primary care physician: Min Diaz Consults: 04/27/20 20:35 Consult to Physician [CONS] Stat Comment: Consulting Provider: Nir Leonard Reason For Exam: Physician to Consult Discharge Meds Discharge Medications Home Medications Diabetic Foot Care #365 day 12/04/15 [Rx Confirmed 04/27/20 Last Taken Unknown] insulin syringe,safetyneedle 1 mL 30 gauge x 02/21" #500 each 01/23/18 [Rx Confirmed 04/27/20 Last Taken Unknown] nitroglycerin 0.4 mg sublingual tablet 0.4 mg SUBLINGUAL Q5-15M PRN #30 tab 05/14/18 [Rx Confirmed 04/27/20 Last Taken Unknown] acetaminophen 325 mg tablet 650 mg PO Q4H PRN tab 10/12/18 [History Confirmed 04/27/20 Last Taken Unknown] atorvastatin 80 mg tablet 80 mg PO QDAY #90 tab 06/24/19 [Rx Confirmed 04/27/20 Last Taken Unknown] polysaccharide iron complex 150 mg iron capsule 150 mg PO .qod #20 cap 06/24/19 [Rx Confirmed 04/27/20 Last Taken Unknown] carvedilol 12.5 mg tablet 12.5 mg PO BID #180 tab 07/31/19 [Rx Confirmed 04/27/20 Last Taken Unknown] insulin degludec 100 unit/mL (3 mL) subcutaneous pen 70 unit SUB-Q QDAY 90 Days #75 ml 08/19/19 [Rx Confirmed 04/27/20 Last Taken Unknown] amlodipine 5 mg tablet 5 mg PO BID #60 tab 11/25/19 [Rx Confirmed 04/27/20 Last Taken Unknown] polyethylene glycol 3350 17 gram/dose oral powder 17 g PO QDAY PRN #510 g 11/25/19 [Rx Confirmed 04/27/20 Last Taken Unknown] levothyroxine 125 mcg tablet 125 mcg PO QDAY #90 tab 12/11/19 [Rx Confirmed 04/27/20 Last Taken Unknown] furosemide 20 mg tablet 40 mg PO BID #180 tab 01/20/20 [Rx Confirmed 04/27/20 Last Taken Unknown] telmisartan 80 mg tablet 80 mg PO QDAY 02/21/20 [History Confirmed 04/27/20 Last Taken Unknown] isosorbide mononitrate 120 mg tablet,extended release 24 hr 60 mg PO QDAY #45 tab 03/20/20 [Rx Confirmed 04/27/20 Last Taken Unknown] chlorthalidone 25 mg tablet 12.5 mg PO QDAY #30 tab 04/06/20 [Rx Confirmed 04/27/20 Last Taken Unknown] apixaban 2.5 mg tablet 2.5 mg PO BID #90 tab 04/13/20 [Rx Confirmed 04/27/20 Last Taken Unknown] fenofibrate 54 mg tablet 54 mg PO QDAY #90 tab 04/15/20 [Rx Confirmed 04/27/20 Last Taken Unknown] memantine 10 mg tablet 10 mg PO QPM 04/15/20 [History Confirmed 04/27/20 Last Taken Unknown] insulin aspart U-100 100 unit/mL subcutaneous solution See Rx Instructions SUB-Q TID #90 ml 04/20/20 [Rx Confirmed 04/27/20 Last Taken Unknown] doxazosin 1 mg PO QHS 04/27/20 [History Confirmed 04/27/20 Last Taken Unknown] potassium chloride [Klor-Con M20] 20 meq PO DAILY #1 tab 05/01/20 [Rx Last Taken Unknown] COURSE Hospital Course Hospital course: Interval history: History of present illness: Ms. Palmer is a 80 year old F Who presents the ED with shortness of breath and dry cough that started this morning. She does not wear oxygen at home and her oxygen was 86% in triage on room air. Denies nausea vomiting fevers or chills or body aches. History is obtained from patient as well as patient's as she has poor memory. Sounds like she has had shortness of breath for at least 6 months. However in the past day or so it is been worse and she developed a dry cough. She denies any recent travel or sick contacts. She thinks she is gained 4 pounds past week or so. She has chronic lower extremity edema and does not feel like it is changed. 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 She has a chronic left bundle branch block. Follows with a seed potato cutter. She denies orthopnea or dysphagia. Nothing makes her coughing and shortness of breath worse or better. In the ED she was found to have a borderline white blood cell count, procalcitonin was okay and lactate was mildly elevated. Potassium was low. Chest x-ray with infiltrate right side with some cephalization. 04/28 Patient on 4 L oxygen. Chest x-ray appears to be more consistent with CHF. Will diurese. Patient reports shortness of breath and dry cough but she feels a little better. Has headache but no other complaints. Asked her about the Eliquis and irregular rhythms and she believes she does have history of irregular heart rhythm but does not recall the term atrial fibrillation. 04/29 Patient has a mild cough that she feels a little better. She denies shortness of breath this morning but is on oxygen. CT chest with effusion greater on the right. Will ask radiology to drain. 04/30 Feeling well this morning. She is sitting in a chair on room air. She had a thoracentesis today at 450cc of transudate of fluid yesterday. No new complaints. 05/01 Doing well. Continues to feel better. On room air. Stable for discharge. *Given age and comorbidities patient is high risk for readmission A: *Acute hypoxic respiratory failure: 2/2 CHF/Pleural effusions vs less likely viral pna. & Atelectasis -now on room air -PCT/CRP low, BNP elevated but similar to previous labs, no bandemia, afebrile -strep/myco/RVP neg *Acute on chronic CHF and right systolic heart failure: -echo with good EF, Diastolic dysfxn, Pulm HTN *Pleural effusions R>L: -s/p Thora (04/29) of 450cc. Transudative *UTI: *Hypokalemia: resolved *DM: *CAD w/cabg&stents: *PAF: on eliquis/bb *HTN: *CKD stage III (base Cr 1.3-1.5): stable *Anemia, chronic: *Hypothyroidism: *Chronic pain: *h/o Gout *Dementia: Discharge diagnosis: Acute hypoxic respite failure heart failure pleural effusion UTI Secondary discharge diagnosis: I will need diabetes coronary artery disease proximal mitral ablation hypertension chronic kidney disease chronic anemia hypothyroidism chronic pain gout dementia Time Spent with Patient Time attestation: Total time spent providing and/or coordinating discharge services: Time spent: Greater than 30 minutes EXAM Constitutional Vitals: Temp Pulse Resp BP Pulse Ox 98.1 F 64 20 134/51 99 04/30/20 08:01 04/30/20 08:34 04/29/20 17:00 04/30/20 08:01 04/30/20 08:34 Discharge Data Data Completed and Pending Labs on day of discharge: Labs from last 24 hours 04/30/20 04/29/20 04/29/20 05:20 12:16 09:45 PT 17.0 H INR 1.3 H APTT 37 Plt Func Collagen/Epi 97 Sodium 138 Potassium 3.4 Chloride 98 Carbon Dioxide 25 Anion Gap 15.0 BUN 54 H Creatinine 1.6 H GFR Calculation 31 Glucose 78 Uric Acid 10.7 H Calcium 8.0 L Phosphorus 4.1 Magnesium 2.4 Total Bilirubin 0.4 Direct Bilirubin < 0.2 GGT 17 AST 12 ALT 9 Alkaline Phosphatase 49 Lactate Dehydrogenase 252 H Total Protein 5.3 L Albumin 3.0 L Globulin 2.3 Albumin/Globulin Ratio 1.3 Triglycerides 110 Fluid pH 7.81 Fluid Total Protein 1.7 Pleural Fluid Source Pleural Pleural Color P. yellow Pleural Appearance Clear Pleural RBC < [address] 100 Pleural Nuc Cells 254 Pleural Neutrophils 23 Pleural Lymphocytes 42 Pleural Monocytes 29 Pleural Plasma Cells Not Reportable Pleural Macrophages Not Reportable Pleural Mesothelial 6 Pleural Diff Comment Not Reportable Pleural LDH 120 Pleural Glucose 170 Nasal/Oral COVID-19 PCR COVID-19 PCR Interp 04/27/20 22:09 PT INR APTT Plt Func Collagen/Epi Sodium Potassium Chloride Carbon Dioxide Anion Gap BUN Creatinine GFR Calculation Glucose Uric Acid Calcium Phosphorus Magnesium Total Bilirubin Direct Bilirubin GGT AST ALT Alkaline Phosphatase Lactate Dehydrogenase Total Protein Albumin Globulin Albumin/Globulin Ratio Triglycerides Fluid pH Fluid Total Protein Pleural Fluid Source Pleural Color Pleural Appearance Pleural RBC Pleural Tot Cell Ct Pleural Nuc Cells Pleural Neutrophils Pleural Lymphocytes Pleural Monocytes Pleural Plasma Cells Pleural Macrophages Pleural Mesothelial Pleural Diff Comment Pleural LDH Pleural Glucose Nasal/Oral COVID-19 PCR No ncov rna detected COVID-19 PCR Interp Cov rna not detected Preliminary micro results at discharge 04/27/20 18:05 Blood Culture - Preliminary Blood 04/27/20 18:15 Blood Culture - Preliminary Blood Discharge Plan Patient/Caregiver Discharge Instructions Activity: increase activity as tolerated Diet: Consistent Carbohydrate Instructions: Community Acquired Pneumonia (ED) Prescriptions: New potassium chloride [Klor-Con M20] 20 mEq Tablet,Er Particles/Crystals 20 meq PO DAILY Qty: 1 RF: 0 Continued (DME) insulin syringe,safetyneedle 1 mL 30 gauge x 5/16" syringe See Dose Instructions .ROUTE .MEDSUPPLY Qty: 500 RF: 3 atorvastatin 80 mg tablet 80 mg PO QDAY Qty: 90 RF: 3 polysaccharide iron complex 150 mg iron capsule 150 mg PO .qod Qty: 20 RF: 3 carvedilol 12.5 mg tablet 12.5 mg PO BID Qty: 180 RF: 3 Tresiba FlexTouch U-100 100 unit/mL (3 mL) insulin pen 70 unit SUB-Q QDAY 90 Days Qty: 75 RF: 3 amlodipine 5 mg tablet 5 mg PO BID Qty: 60 RF: 11 levothyroxine [Synthroid] 125 mcg tablet 125 mcg PO QDAY Qty: 90 RF: 1 furosemide 20 mg tablet 40 mg PO BID Qty: 180 RF: 3 isosorbide mononitrate 120 mg tablet extended release 24 hr 60 mg PO QDAY Qty: 45 RF: 1 chlorthalidone 25 mg tablet 12.5 mg PO QDAY Qty: 30 RF: 3 fenofibrate 54 mg tablet 54 mg PO QDAY Qty: 90 RF: 1 memantine 10 mg tablet 10 mg PO QPM RF: 0 insulin aspart U-100 [Novolog U-100 Insulin aspart] 100 unit/mL solution See Rx Instructions SUB-Q TID Qty: 90 RF: 4 nitroglycerin 0.4 mg tablet, sublingual 0.4 mg SUBLINGUAL Q5-15M PRN (Reason: chest pain) Qty: 30 RF: 0 Eliquis 2.5 mg tablet 2.5 mg PO BID Qty: 90 RF: 3 polyethylene glycol 3350 [Miralax] 17 gram/dose powder 17 g PO QDAY PRN (Reason: constipation) Qty: 510 RF: 3 (DME) Diabetic Foot Care Qty: 365 RF: 0 acetaminophen 325 mg tablet 650 mg PO Q4H PRN (Reason: Pain) RF: 0 telmisartan 80 mg tablet 80 mg PO QDAY RF: 0 doxazosin 1 mg Tablet 1 mg PO QHS RF: 0 Discontinued potassium chloride 20 mEq tablet extended release 20 meq PO BID Qty: 14 RF: 0 Follow Up Plan Follow up with: Min Diaz DO [Primary Care Provider] - Patient Disposition: Home Health Service Rehab Potential: Undetermined Overall status at discharge: patient is progressing back to baseline Discharge Orders: Discharge Order (Routine); Ordered 05/01/20 Ordered By: Nir Manriquecelio [facility] VTE Deep Vein Thrombosis/Pulmonary Embolism Present on Admission: No
[2020-04-30] MEDS ORDERED: ONDANSETRON 4 MG/2 ML VIAL IV PRN (10:53)
[2020-04-30] MEDS ORDERED: MAGNESIUM SULFATE 2 GM/50 ML BAG IV PRN (10:53)
[2020-04-30] MEDS ORDERED: DEXTROSE 31 GM ORAL.SUSP PO PRN (10:53)
[2020-04-30] MEDS ORDERED: POTASSIUM CHLORIDE 40 MEQ in DEXTROSE 5% IN WATER 500 ML IV PRN (10:53)
[2020-04-30] MEDS ORDERED: POTASSIUM CHLORIDE 20 MEQ TABLET PO PRN ×2 (10:53)
[2020-04-30] MEDS ORDERED: IPRATROPIUM/ALBUTEROL 3 ML AMPUL.NEB NEB PRN (10:53)
[2020-04-30] MEDS ORDERED: SENNOSIDES 1 TABLET PO PRN (10:53)
[2020-04-30] MEDS ORDERED: DEXTROSE 50% 50 ML VIAL IV PRN (10:53)
[2020-04-30] MEDS ORDERED: METOPROLOL TARTRATE 5 MG/5 ML VIAL IV PRN (10:53)
[2020-04-30] MEDS ORDERED: POLYETHYLENE GLYCOL 3350 17 GM PACKET PO PRN (10:53)
[2020-04-30] MEDS ORDERED: NITROGLYCERIN 0.4 MG TAB.SUBL SL PRN (10:53)
[2020-04-30] MEDS ORDERED: PHENobarb/HYOSCY/ATROPINE/SCOP 1 DOSE BOTTLE PO ONE (12:53)
[2020-04-30] MEDS: BENZONATATE 100 MG CAPSULE PO PRN (13:41)
[2020-04-30] MEDS: ACETAMINOPHEN 325 MG TABLET PO PRN ×2 (14:20→17:57)
[2020-04-30] MEDS ORDERED: POTASSIUM CHLORIDE 20 MEQ TABLET PO SCH (17:30)
[2020-04-30] MEDS ORDERED: HYDROcodone/APAP 5/325MG TABLET PO PRN (18:05)
[2020-04-30] MEDS ORDERED: traMADol 50 MG TABLET PO PRN ×2 (19:05→19:17)
[2020-04-30] MEDS ORDERED: traMADol 50 MG TABLET PO ONE (19:13)
[2020-04-30] MEDS ORDERED: predniSONE 20 MG TABLET PO ONE (19:19)
[2020-04-30] MEDS ORDERED: MEMANTINE 10 MG TABLET PO SCH (21:00)
[2020-04-30] MEDS ORDERED: DOXAZOSIN 1 MG TABLET PO SCH (21:00)
[2020-05-01] MEDS: BENZONATATE 100 MG CAPSULE PO PRN (03:09)
[2020-05-01] MEDS: 0.9 % SODIUM CHLORIDE 10 ML SYRINGE IV SCH ×2 (03:15→04:17)
[2020-05-01 06:46] LABS: Blood Urea Nitrogen 52 mg/dl (8-23); Calcium 8.4 mg/dl (8.6-10.4); Carbon Dioxide 23 mmol/L (22-30); Chloride 98 mmol/L (96-108); Glomerular Filtration Rate 33; Glucose 198 mg/dL (70-105)
[2020-05-01] MEDS ORDERED: LEVOTHYROXINE 125 MCG TABLET PO SCH (07:30)
--- NOTE | 2020-05-01 07:44 | XRay Report ---
HISTORY: Right ankle pain FINDINGS: No fracture or dislocation are present. The ankle joint space is normal in width. There may be a small joint effusion. There are small spurs along the inferior border of both medial and lateral malleoli. Moderate size spurs are present on the plantar surface and posterior border of the calcaneus and there is also arthritis between the navicular and adjacent cuneiforms. Soft tissue swelling surrounds the ankle. There is a large amount of atherosclerotic plaque in the vessels surrounding the ankle. The bones are osteopenic. IMPRESSION: Mild arthritis Possible small joint effusion Interpreted and Authenticated by: Julian Freitas 05/01/20
[2020-05-01] MEDS: INSULIN LISPRO 1 UNIT/0.01 ML UNIT SQ SCH (07:45)
[2020-05-01] MEDS: APIXABAN 5 MG TABLET PO SCH (08:14)
[2020-05-01] MEDS: CARVEDILOL 12.5 MG TABLET PO SCH (08:15)
[2020-05-01] MEDS: DOCUSATE SODIUM 100 MG CAPSULE PO SCH (08:15)
[2020-05-01] MEDS: amLODIPine 5 MG TABLET PO SCH (08:15)
--- NOTE | 2020-05-01 08:42 | XRay Report ---
HISTORY: Short of breath, pleural effusion FINDINGS: There is moderate consolidation in the basilar segments of the left lower lobe with a superimposed small left-sided pleural effusion. This is unchanged from 04/29/20. There is mild diffuse interstitial infiltrate in the right lung with the greatest involvement in the right lower lobe. There has been no reaccumulation of the right-sided pleural effusion following the thoracentesis. The tiny right apical pneumothorax has nearly resolved. The heart size is normal. The infiltrate in the right lower lobe has become worse since the postthoracentesis chest x-ray done on 04/29/20. IMPRESSION: Mild pneumonia throughout the right lung is becoming somewhat worse in the right lower lobe Stable moderate atelectasis or pneumonia in left lower lobe No reaccumulation of pleural fluid Interpreted and Authenticated by: Julian Freitas 05/01/20
[2020-05-01] MEDS ORDERED: cefTRIAXone 2 GM in DEXTROSE 5% IN WATER 50 ML IV SCH (09:00)
[2020-05-01] MEDS ORDERED: ISOSORBIDE MONONITRATE 60 MG TAB.XL.24H PO SCH (09:00)
[2020-05-01] MEDS ORDERED: ATORVASTATIN 40 MG TABLET PO SCH (09:00)
[2020-05-01] MEDS ORDERED: INSULIN GLARGINE, HUMAN 1 UNIT/0.01 ML SQ SCH (09:00)
[2020-05-01] MEDS ORDERED: OLMESARTAN MEDOXOMIL 20 MG TABLET PO SCH (09:00)
== END 2020-05-01 11:05 | disposition home health service (06) | DRG 189 ==
LOC: ED 17:40 → ICU 22:50 → MEDSUR 04-30 15:04
PROVIDERS: ADMIT Internal Medicine; ATTEND Internal Medicine

== ENCOUNTER 2024-04-14 23:26 | Inpatient (IN) ==
[2024-04-15 00:45] LABS: Basophils # (Auto) 0.03 K/mcL (0.00-0.30); Basophils % (Auto) 0.2 % (0.0-2.0); Eosinophils % (Auto) 0.6 % (0.0-7.0); Hematocrit 27.8 % (34.1-44.9); Hemoglobin 8.7 g/dL (11.2-15.7); Lymphocytes # (Auto) 1.41 K/mcL (1.50-4.80); Lymphocytes % (Auto) 8.2 % (15.5-49.0); Mean Cell Volume 87.7 fL (80.0-100.0); Mean Corpuscular HGB Conc 31.3 g/dL (31.0-36.0); Mean Platelet Volume 10.5 fL (8.8-12.5); Monocytes # (Auto) 0.94 K/mcL (0.10-0.90); Monocytes % (Auto) 5.5 % (1.0-12.0); Neutrophils % (Auto) 85.2 % (38.0-78.0); Platelet Count 331 K/mcL (140-440); RBC 3.17 M/mcL (3.59-5.38); Red Cell Distribution Width 14.4 % (11.5-14.5); WBC 17.2 K/mcL (4.5-11.0)
[2024-04-15 01:10] LABS: ALT/SGPT 11 U/L (<40); AST/SGOT 28 U/L (<32); Albumin 3.6 gm/dL (3.2-5.2); Albumin/Globulin Ratio 1.3 (1.0-2.3); Alkaline Phosphatase 53 U/L (39-117); Bilirubin,Total 0.4 mg/dL (0.1-1.0); Blood Urea Nitrogen 48 mg/dL (8-23); Calcium 9.2 mg/dL (8.6-10.4); Carbon Dioxide 23 mmol/L (22-30); Chloride 97 mmol/L (96-108); Globulin 2.8 gm/dL (2.2-3.7); Glomerular Filtration Rate 19; Glucose 292 mg/dL (70-105); Potassium 3.4 mmol/L (3.3-5.1); Sodium 139 mmol/L (133-145)
[2024-04-15] MEDS: methylPREDNISolone SOD SUCC 125 MG/2 ML VIAL IV ONE (01:21)
[2024-04-15] MEDS: cefTRIAXone 1 GM VIAL IV ONE (01:21)
[2024-04-15] MEDS: FUROSEMIDE 40 MG/4 ML VIAL IV ONE ×3 (01:22→21:11)
[2024-04-15] MEDS: AZITHROMYCIN 500 MG in DEXTROSE 5% IN WATER 250 ML IV ONE (01:48)
[2024-04-15 02:01] LABS: POC INR 1.3 (0.8-1.2); POC Pro Time 15.9 (11.9-14.5)
[2024-04-15 04:02] LABS: Appearance,Urine CLEAR (Clear); Bilirubin,Urine Negative (Negative); Color,Urine YELLOW; Culture Indicated,Urine No; Glucose,Urine (UA) Negative (Negative); Ketones,Urine Negative (Negative); Leukocyte Esterase,Urine Negative /uL (Negative); Nitrate,Urine Negative (Negative); Protein,Urine 100 mg/dL (Negative); Specific Gravity,Urine 1.013 (1.000-1.035); Urine Blood Negative (Negative); Urine Hyaline Cast 7 /lph (0-2); Urine RBC < 1 /hpf (0-3); Urine Squamous Epithelial Cell < 1 /hpf (0-4); Urine WBC < 1 /hpf (0-4); Urobilinogen,Urine Negative
[2024-04-15] MEDS: IPRATROPIUM/ALBUTEROL 3 ML AMPUL.NEB NEB ONE (08:45)
[2024-04-15] MEDS: methylPREDNISolone SOD SUCC 125 MG/2 ML VIAL IV SCH ×2 (09:02→09:29)
[2024-04-15] MEDS: cefTRIAXone 1 GM VIAL IV SCH (09:14)
[2024-04-15 09:23] LABS: Basophils # (Auto) 0.01 K/mcL (0.00-0.30); Basophils % (Auto) 0.1 % (0.0-2.0); Eosinophils # (Auto) 0 K/mcL (0.00-0.70); Eosinophils % (Auto) 0 % (0.0-7.0); Hematocrit 27.4 % (34.1-44.9); Hemoglobin 8.6 g/dL (11.2-15.7); Lymphocytes # (Auto) 0.76 K/mcL (1.50-4.80); Lymphocytes % (Auto) 5.6 % (15.5-49.0); Mean Cell Volume 87.5 fL (80.0-100.0); Mean Corpuscular HGB Conc 31.4 g/dL (31.0-36.0); Mean Platelet Volume 10.5 fL (8.8-12.5); Monocytes # (Auto) 0.08 K/mcL (0.10-0.90); Monocytes % (Auto) 0.6 % (1.0-12.0); Neutrophils % (Auto) 93.3 % (38.0-78.0); Platelet Count 311 K/mcL (140-440); RBC 3.13 M/mcL (3.59-5.38); Red Cell Distribution Width 14.4 % (11.5-14.5); WBC 13.5 K/mcL (4.5-11.0)
[2024-04-15 09:54] LABS: C-Reactive Protein 5.86 mg/dL (0.03-0.80)
[2024-04-15] MEDS ORDERED: METHOCARBAMOL 500 MG TABLET PO PRN (09:58)
[2024-04-15] MEDS ORDERED: MAGNESIUM HYDROXIDE 30 ML ORAL.SUSP PO PRN (09:58)
[2024-04-15] MEDS ORDERED: traMADol 50 MG TABLET PO PRN (09:58)
[2024-04-15 10:13] LABS: ALT/SGPT 13 U/L (<40); AST/SGOT 28 U/L (<32); Albumin 3.8 gm/dL (3.2-5.2); Albumin/Globulin Ratio 1.4 (1.0-2.3); Alkaline Phosphatase 53 U/L (39-117); Bilirubin,Total 0.4 mg/dL (0.1-1.0); Blood Urea Nitrogen 53 mg/dL (8-23); Calcium 9.8 mg/dL (8.6-10.4); Carbon Dioxide 21 mmol/L (22-30); Chloride 93 mmol/L (96-108); Globulin 2.8 gm/dL (2.2-3.7); Glomerular Filtration Rate 19; Glucose 513 mg/dL (70-105); Sodium 135 mmol/L (133-145)
[2024-04-15] MEDS ORDERED: BUTALB/ACETAMINOPHEN/CAFFEINE 1 TABLET PO PRN (10:14)
[2024-04-15] MEDS ORDERED: INSULIN REGULAR, HUMAN 1 UNIT/0.01 ML UNIT IV PRN (10:19)
[2024-04-15] MEDS: DOXYCYCLINE 100 MG in DEXTROSE 5% IN WATER 100 ML IV SCH (10:23)
[2024-04-15] MEDS: INSULIN LISPRO 1 UNIT/0.01 ML UNIT SQ SCH ×3 (10:45→16:58)
[2024-04-15] MEDS: DONEPEZIL 10 MG TABLET PO SCH (10:45)
[2024-04-15] MEDS: INSULIN GLARGINE, HUMAN 1 UNIT/0.01 ML SQ SCH (10:46)
[2024-04-15] MEDS: MEMANTINE 10 MG TABLET PO SCH (10:49)
[2024-04-15] MEDS: LEVOTHYROXINE 150 MCG TABLET PO SCH (10:49)
[2024-04-15] MEDS: APIXABAN 2.5 MG TABLET PO SCH (10:49)
[2024-04-15] MEDS: CLOPIDOGREL 75 MG TABLET PO SCH (10:49)
[2024-04-15] MEDS: 0.9 % SODIUM CHLORIDE 250 ML IV ONE (10:49)
[2024-04-15] MEDS: IPRATROPIUM/ALBUTEROL 3 ML AMPUL.NEB NEB SCH (13:10)
[2024-04-15] MEDS: 0.9 % SODIUM CHLORIDE 10 ML SYRINGE IV SCH (16:56)
[2024-04-15] MEDS ORDERED: INSULIN LISPRO 1 UNIT/0.01 ML UNIT SQ SCH (17:00)
[2024-04-15] MEDS ORDERED: NITROGLYCERIN 0.4 MG TAB.SUBL SL PRN (19:15)
[2024-04-15] MEDS: NORTRIPTYLINE 10 MG CAPSULE PO SCH (20:11)
[2024-04-15] MEDS: SIMETHICONE 80 MG TAB.CHEW CHEWED SCH (20:11)
[2024-04-15] MEDS: MELATONIN 3 MG TABLET PO PRN (20:11)
[2024-04-15] MEDS: FENOFIBRATE 43 MG CAPSULE PO SCH (20:11)
[2024-04-15] MEDS: ATORVASTATIN 40 MG TABLET PO SCH (21:21)
[2024-04-15] MEDS: PANTOPRAZOLE 40 MG TABLET PO ONE (21:21)
[2024-04-15] MEDS: BISMUTH SUBSALICYLATE 15 ML ORAL.SUSP PO ONE (21:34)
[2024-04-15] MEDS: LORazepam 2 MG/ML VIAL IV PRN (22:49)
[2024-04-15] MEDS: LORazepam 2 MG/ML VIAL ONE (22:50)
[2024-04-15] MEDS: morphine 4 MG/ML VIAL IV PRN (23:16)
[2024-04-16] MEDS: morphine 2 MG/ML VIAL ONE ×2 (01:01→03:05)
[2024-04-16] MEDS: LORazepam 2 MG/ML VIAL ONE (05:13)
[2024-04-16] MEDS: IPRATROPIUM/ALBUTEROL 3 ML AMPUL.NEB NEB PRN (07:30)
[2024-04-16] MEDS: BUDESONIDE 0.5 MG/2 ML AMPUL.NEB NEB SCH (08:00)
[2024-04-16] MEDS: ONDANSETRON 4 MG/2 ML VIAL IV PRN (08:03)
[2024-04-16] MEDS: methylPREDNISolone SOD SUCC 40 MG/ML VIAL IV SCH (08:09)
[2024-04-16 08:25] LABS: C-Reactive Protein 6.66 mg/dL (0.03-0.80)
[2024-04-16 08:32] LABS: ALT/SGPT 12 U/L (<40); AST/SGOT 67 U/L (<32); Albumin 3.7 gm/dL (3.2-5.2); Albumin/Globulin Ratio 1.3 (1.0-2.3); Alkaline Phosphatase 59 U/L (39-117); Bilirubin,Direct < 0.2 mg/dL (0-0.3); Bilirubin,Total 0.4 mg/dL (0.1-1.0); Blood Urea Nitrogen 68 mg/dL (8-23); Calcium 9.5 mg/dL (8.6-10.4); Carbon Dioxide 16 mmol/L (22-30); Chloride 91 mmol/L (96-108); Globulin 2.9 gm/dL (2.2-3.7); Glomerular Filtration Rate 14; Glucose 347 mg/dL (70-105); Lactate Dehydrogenase 501 U/L (135-225); Phosphorous 6.5 mg/dL (2.5-4.5); Sodium 134 mmol/L (133-145); Triglycerides 195 mg/dL (<150)
[2024-04-16] MEDS: INSULIN LISPRO 1 UNIT/0.01 ML UNIT SQ SCH (08:34)
[2024-04-16] MEDS ORDERED: LABETALOL HCL 20 MG/4 ML VIAL IV PRN (08:55)
[2024-04-16] MEDS: SODIUM BICARBONATE 650 MG TABLET PO SCH (11:15)
[2024-04-16] MEDS: CARVEDILOL 12.5 MG TABLET PO SCH (11:23)
[2024-04-16] MEDS: ACETAMINOPHEN 325 MG TABLET PO PRN (11:25)
[2024-04-16 11:26] LABS: Basophils # (Auto) 0.03 K/mcL (0.00-0.30); Basophils % (Auto) 0.1 % (0.0-2.0); Eosinophils # (Auto) 0 K/mcL (0.00-0.70); Eosinophils % (Auto) 0 % (0.0-7.0); Hematocrit 31.4 % (34.1-44.9); Hemoglobin 9.3 g/dL (11.2-15.7); Lymphocytes # (Auto) 1.31 K/mcL (1.50-4.80); Mean Cell Volume 92.1 fL (80.0-100.0); Mean Corpuscular HGB Conc 29.6 g/dL (31.0-36.0); Mean Platelet Volume 11.1 fL (8.8-12.5); Monocytes # (Auto) 1.42 K/mcL (0.10-0.90); Monocytes % (Auto) 5.4 % (1.0-12.0); Platelet Count 425 K/mcL (140-440); RBC 3.41 M/mcL (3.59-5.38); Red Cell Distribution Width 14.5 % (11.5-14.5); WBC 26.2 K/mcL (4.5-11.0)
[2024-04-16] MEDS: SENNOSIDES 1 TABLET PO PRN (11:39)
[2024-04-16] MEDS: PANTOPRAZOLE 40 MG TABLET PO SCH (11:40)
[2024-04-16] MEDS: DONEPEZIL 10 MG TABLET PO SCH (11:55)
[2024-04-16] MEDS: PIPERACILLIN SODIUM/TAZOBACTAM 3.375 GM in DEXTROSE 5% IN WATER 50 ML IV SCH (12:23)
[2024-04-16 13:33] LABS: Glucose,Pleural Fluid 326 mg/dL; LDH,Pleural Fluid 116 U/L (<122)
[2024-04-16 15:28] LABS: Appearance,Pleural Fluid Clear; Color,Pleural Fluid Yellow; Lymphocytes,Pleural Fluid 17 %; Mesothelial,Pleural Fluid 14 %; Monocytes,Pleural Fluid 50 %; Neutrophils,Pleural Fluid 19 %; RBC,Pleural Fluid <50,000 /cumm
[2024-04-16] MEDS ORDERED: PIPERACILLIN SODIUM/TAZOBACTAM 3.375 GM in DEXTROSE 5% IN WATER 100 ML IV SCH (16:00)
[2024-04-16] MEDS: LACTOPEROXI/GLUC OXID/POT THIO 1 EACH GEL..EA. TOPICAL PRN (16:14)
[2024-04-16] MEDS: POLYETHYLENE GLYCOL 3350 17 GM PACKET PO PRN (16:15)
[2024-04-16] MEDS ORDERED: METOCLOPRAMIDE 10 MG/2 ML VIAL IV PRN (18:51)
[2024-04-16] MEDS: 0.9 % SODIUM CHLORIDE 1,000 ML IV SCH (19:29)
[2024-04-16] MEDS: PIPERACILLIN SODIUM/TAZOBACTAM 3.375 GM in DEXTROSE 5% IN WATER 100 ML IV SCH (19:30)
[2024-04-16] MEDS: SODIUM BICARBONATE VIAL 50 MEQ in EMPTYBAG 0 ML IV SCH (19:37)
[2024-04-16] MEDS: SODIUM BICARBONATE 50 MEQ/50 ML VIAL ONE (19:52)
[2024-04-16] MEDS: DOCUSATE SODIUM 100 MG CAPSULE PO SCH (20:33)
[2024-04-17] MEDS: 0.9 % SODIUM CHLORIDE 500 ML IV SCH (03:34)
[2024-04-17 06:23] LABS: Basophils # (Auto) 0.03 K/mcL (0.00-0.30); Basophils % (Auto) 0.2 % (0.0-2.0); Eosinophils # (Auto) 0 K/mcL (0.00-0.70); Eosinophils % (Auto) 0 % (0.0-7.0); Hematocrit 26.1 % (34.1-44.9); Lymphocytes # (Auto) 0.97 K/mcL (1.50-4.80); Mean Cell Volume 89.7 fL (80.0-100.0); Mean Corpuscular HGB Conc 30.7 g/dL (31.0-36.0); Mean Platelet Volume 11.3 fL (8.8-12.5); Monocytes # (Auto) 1.41 K/mcL (0.10-0.90); Monocytes % (Auto) 7.3 % (1.0-12.0); Neutrophils % (Auto) 86.8 % (38.0-78.0); Platelet Count 205 K/mcL (140-440); RBC 2.91 M/mcL (3.59-5.38); Red Cell Distribution Width 14.5 % (11.5-14.5); WBC 19.3 K/mcL (4.5-11.0)
[2024-04-17 07:32] LABS: ALT/SGPT 3150 U/L (<40); AST/SGOT 6530 U/L (<32); Albumin 3.2 gm/dL (3.2-5.2); Albumin/Globulin Ratio 1.3 (1.0-2.3); Alkaline Phosphatase 50 U/L (39-117); Bilirubin,Direct 0.5 mg/dL (<0.3); Bilirubin,Total 0.9 mg/dL (0.1-1.0); Blood Urea Nitrogen 93 mg/dL (8-23); Calcium 7.9 mg/dL (8.6-10.4); Carbon Dioxide 21 mmol/L (22-30); Chloride 95 mmol/L (96-108); Globulin 2.4 gm/dL (2.2-3.7); Glomerular Filtration Rate 10; Glucose 94 mg/dL (70-105); Lactate Dehydrogenase > 2500 U/L (135-225); Phosphorous 8.7 mg/dL (2.5-4.5); Potassium 5.3 mmol/L (3.3-5.1); Sodium 136 mmol/L (133-145); Triglycerides 88 mg/dL (<150); Uric Acid 9.8 mg/dL (2.5-8.0)
[2024-04-17] MEDS: 0.9 % SODIUM CHLORIDE 500 ML IV ONE (07:54)
[2024-04-17] MEDS: methylPREDNISolone SOD SUCC 40 MG/ML VIAL IV SCH (08:08)
[2024-04-17 08:37] LABS: Band Neutrophils % 2 % (0-10); Lymphocytes % 8 % (15-49); Monocytes % (Manual) 1 % (1-12); Platelet Estimate NORMAL (Normal); RBC Morphology NORMAL (Normal); Segmented Neutrophils % 89 % (38-78)
[2024-04-17] MEDS: SODIUM BICARBONATE 50 MEQ/50 ML VIAL IV ONE (08:52)
[2024-04-17] MEDS ORDERED: morphine 4 MG/ML VIAL NEB PRN (10:55)
[2024-04-17] MEDS ORDERED: ONDANSETRON 4 MG/2 ML VIAL IV PRN (10:55)
[2024-04-17] MEDS ORDERED: LACTOPEROXI/GLUC OXID/POT THIO 1 EACH GEL..EA. TOPICAL PRN (10:55)
[2024-04-17] MEDS: morphine 4 MG/ML VIAL IV PRN (11:16)
[2024-04-17] MEDS: LORazepam 2 MG/ML VIAL IV PRN (11:16)
[2024-04-17] MEDS ORDERED: 0.9 % SODIUM CHLORIDE 10 ML SYRINGE IV SCH (14:00)
[2024-04-18 17:08] LABS: Adenovirus Not Detected (Not Detected); Bordetella Pertussis Not Detected (Not Detected); Chlamydophila Pneumoniae Not Detected (Not Detected); Coronavirus 229E Not Detected (Not Detected); Coronavirus HKU1 Not Detected (Not Detected); Coronavirus NL63 Not Detected (Not Detected); Coronavirus OC43 Not Detected (Not Detected); Human Metapneumovirus Not Detected (Not Detected); Influenza A/H1 Not Detected (Not Detected); Influenza A/H1-2009 Not Detected (Not Detected); Influenza A/H3 Not Detected (Not Detected); Influenza B Not Detected (Not Detected); Mycoplasma Pneumoniae Not Detected (Not Detected); Parainfluenza 1 Not Detected (Not Detected); Parainfluenza 2 Not Detected (Not Detected); Parainfluenza 3 Not Detected (Not Detected); Parainfluenza 4 Not Detected (Not Detected); Respiratory Syncytial Virus Not Detected (Not Detected)
[2024-04-19 03:32] LABS: Nucleated Cells,Pleural Fld 108 /cumm
== END 2024-04-17 13:10 | disposition expired | DRG 871 ==
LOC: ED 23:26 → ICU 04-15 09:38
PROVIDERS: ADMIT Student in an Organized Health Care Education/Training Program; ATTEND Internal Medicine